=== PATIENT | male | born 1950 | race Caucasian/White ===

== ENCOUNTER 2025-02-11 11:05 | Inpatient (IN) ==
[2025-02-11] MEDS: SODIUM CHLORIDE 0.9% 1,000 ML IV ONE (11:28)
--- NOTE | 2025-02-11 11:28 | Emergency Department Note ---
Impression & Plan Acute kidney injury superimposed on CKD, Diarrhea ED Provider Note Provider: Marc Key MD CHIEF COMPLAINT: 4 days of diarrhea HISTORY OF PRESENT ILLNESS: Patient is a 74-year-old gentleman history of type 2 diabetes, CKD, hypertension presenting here today with with concerns for infectious diarrhea and possible C. difficile. Patient's had 4 days of nonbloody diarrhea. They report it was somewhat black in nature but this is chronic is on iron supplement. Has lightened up somewhat but no blood noted. Denies abdominal cramping or abdominal pain. No nausea or vomiting reported. No fevers. No recent travel or other sick contact. No suspect food intake reported. is well. Patient states he has had more than a dozen bowel manage last several days but has intermittently been using little Imodium to make it more bearable. 2 bowel movements this morning. Has been able to take his medications and monitor his blood sugar and it has been doing okay not over 200. Patient has been eating and drinking but states he feels thirsty and weak. Reported 10 pound weight loss over the last 4 days. No history of similar. PAST MEDICAL HISTORY: As noted above MEDICATIONS: Reviewed home medications and he states he has been taking them SOCIAL HISTORY: PHYSICAL EXAM: GENERAL: alert and oriented in no acute distress on stretcher Head: normocephalic and atraumatic EYES: No injection, discharge or icterus. NECK: Trachea midline. ENT: Mucous membranes pink and moist. LUNGS: Airway patent. No retractions or tachypnea HEART: Regular rate and rhythm. No chest wall tenderness ABDOMEN: Soft and non-tender, without guarding or rebound. No masses appreciable. Rectal: With nurse concrete mixer truck driver Cindi present, yellowish liquid stool Hemoccult negative obtained. SKIN: Acyanotic, warm, dry, without rashes EXTREMITIES: Without swelling, tenderness or deformity NEUROLOGICAL: No focal deficits. No aphasia. No facial droop or slurred speech. Ambulatory. EK bpm sinus rhythm first-degree AV block with left bundle branch block noted. No clear acute ST segment elevation consistent with Sgarbossa criteria. QTc 540. T wave inversion lead I and aVL. Compared to previous from May 18, 2022 appears similar. CONTINUOUS CARDIAC MONITORING: was ordered and showed a heart rate of 70s bpm in first-degree AV block Patient's laboratory studies and imaging reviewed. Differential includes Gastroenteritis, food borne illness, infections including C. difficile or norovirus, appendicitis, diverticulitis, inflammatory bowel disease, obstruction, GI bleed, biliary pathology, volvulus, as well as other pathologies. IMPRESSION/MEDICAL DECISION MAKING: Patient without abdominal pain tenderness or distention. No nausea or vomiting. Does appear somewhat fatigued reports significant weight loss. Question this is fluid weight. Is on Jardiance for his diabetes and has chronic CKD with significant amount of diarrhea may be volume down. Liter of normal saline ordered. Basic labs ordered. Hemoccult negative here doubt GI bleed. Discussed the patient providing stool sample to test for C. difficile or norovirus but does not have risk factors for C. difficile. Patient's states her prior had this so she is concerned for it. Does not appear obviously septic at this time and does not have a surgical abdomen. Blood work here today without anemia. Mild leukocytosis of 10.4 noted. Mild hyponatremia 135 with some mild hypokalemia of 2.8. Evidence of acute kidney injury creatinine of [address] Noncon of the abdomen pelvis to exclude any obstructive findings contributing to his DAVID. CT report seems reassuring at this time. No evidence acute hepatitis or pancreatitis based on labs. Chronic stable troponin compared to previous. I will hold off on aggressive potassium supplementation given his renal dysfunction at this time; discussed with the hospitalist 20 mEq ordered. Still waiting stool sample. Discussed with him and his findings and agreeable with the plan to stay for further hydration and monitoring of his renal function. Hospitalist team contacted. C. difficile and stool panel later returned negative. DIAGNOSIS: DAVID on CKD, diarrhea, weakness, hypokalemia DISPOSITION: Hospitalist will evaluate Patient was agreeable with this plan. Past Med/Surg History Problem List (Updated 02/11/25 @ 12:25 by Marc Key M.D.) Diarrhea (Acute) Acute kidney injury superimposed on CKD (Acute) Diabetes type 2, controlled CKD stage 3 due to type 2 diabetes mellitus Dyslipidemia Hypertension Diabetic nephropathy associated with type 2 diabetes mellitus Personal history of diabetic foot ulcer Diabetic peripheral neuropathy associated with type 2 diabetes mellitus Medical History Hx of iron deficiency anemia Sleep apnea CPAP Surgical History Hx of appendectomy Hx of arthroscopic knee surgery lt. Social History Smoking Status: Never smoker Second Hand Exposure: Yes (hx-parents smoked); Do You Dip or Chew Tobacco: No; Hx Alcohol Use: Yes Hx Substance Use: No Preferred Language: Swedish Communication Ability: Effective Inside Sales Account Executive Required: No Beliefs That Will Affect Care: None Current Living Situation: Spouse and Family Feels Safe at Home: Yes Assistive Devices: CPAP, Denture - Upper, Denture - Lower and Glasses Allergies Allergies Allergy/AdvReac Type Severity Reaction Status Date / Time lisinopril Allergy Severe Anaphylaxis Verified 02/11/25 13:21 metformin Allergy Severe Anaphylaxis Unverified 02/11/25 13:21 Home Meds Home Medications Medication Instructions Recorded Confirmed allopurinol 100 mg tablet 100 mg PO QAM 01/07/22 02/11/25 amlodipine 2.5 mg tablet 2.5 mg PO QAM 01/07/22 02/11/25 cholecalciferol (vitamin D3) 25 25 mcg PO HS 01/07/22 02/11/25 mcg (1,000 unit) capsule cyanocobalamin (vitamin B-12) 500 500 mcg PO QAM 01/07/22 02/11/25 mcg tablet furosemide 80 mg tablet 80 mg PO BID 01/07/22 02/11/25 hydralazine 50 mg tablet 50 mg PO BID 01/07/22 02/11/25 metoprolol succinate 50 mg 50 mg PO BID 01/07/22 02/11/25 tablet,extended release 24 hr atorvastatin 40 mg tablet 40 mg PO HS 03/20/22 02/11/25 gabapentin 300 mg capsule 300 - 600 mg PO UD 03/20/22 02/11/25 insulin NPH isoph U-100 human 100 0 - 150 unit subcut DIRECTED 11/30/24 02/11/25 unit/mL (3 mL) subcutaneous pen (Novolin N FlexPen) calcium carbonate (Calcium 600) 600 mg PO DAILY 02/11/25 02/11/25 ferrous sulfate 325 mg (65 mg 325 mg PO DAILY 02/11/25 02/11/25 iron) tablet (iron) garlic 100 mg tablet 100 mg PO DAILY 02/11/25 02/11/25 insulin lispro 100 unit/mL 26 - 30 unit subcut BID 02/11/25 02/11/25 subcutaneous pen (Humalog KwikPen (U-100) Insulin) isosorbide mononitrate 30 mg 30 mg PO QAM 02/11/25 02/11/25 tablet,extended release 24 hr Previous Rx's Medication Instructions Recorded dulaglutide 3 mg/0.5 mL 3 mg (0.5 mL) subcut Q7D #6 mL 09/05/24 subcutaneous pen injector (Trulicity) amitriptyline 10 mg tablet 10 mg PO DAILY #30 tabs 12/01/24 empagliflozin 25 mg tablet 25 mg PO QAM #30 tabs 01/16/25 Results & Data (ED) Vital Signs Vital Signs - 24 hr 02/11/25 11:08 02/11/25 11:25 02/11/25 11:45 Temperature 36.1 C L Temperature Source Temporal Artery Scan Pulse Rate 72 70 70 Pulse Rate [Left Finger] Pulse Rate from SpO2 Sensor Pulse Rhythm Regular Pulse Rhythm [Left Finger] Pulse Strength [Left Finger] Respiratory Rate 18 16 Respiratory Effort / Characteristics Non-Labored Spontaneous Respiratory Depth Normal Respiratory Pattern Regular Blood Pressure 91/52 L Blood Pressure [Left Arm] Blood Pressure Mean 65 Blood Pressure Mean [Left Arm] Blood Pressure Position [Left Arm] Pulse Oximetry 95 99 Oxygen Delivery Method Room Air Room Air Sepsis Recent Fever Within 48 Hours No Sepsis New/Unexplained Change in Mental Status N/A Sepsis Action Taken by Nursing No Action Required 02/11/25 12:24 02/11/25 12:24 02/11/25 13:06 Temperature Temperature Source Pulse Rate 69 Pulse Rate [Left Finger] 69 Pulse Rate from SpO2 Sensor 70 Pulse Rhythm Pulse Rhythm [Left Finger] Regular Pulse Strength [Left Finger] Normal Respiratory Rate 20 13 Respiratory Effort / Characteristics Non-Labored Spontaneous Respiratory Depth Normal Respiratory Pattern Regular Blood Pressure 105/60 Blood Pressure [Left Arm] 105/60 Blood Pressure Mean 65 Blood Pressure Mean [Left Arm] 75 Blood Pressure Position [Left Arm] Lying Pulse Oximetry 93 94 Oxygen Delivery Method Room Air Sepsis Recent Fever Within 48 Hours Sepsis New/Unexplained Change in Mental Status Sepsis Action Taken by Nursing Laboratory Data 02/11/25 11:25 02/11/25 17:05 Lab Results 02/11/25 Range/Units 11:25 WBC 13.41 H (4.8-10.8) K/ul RBC 5.23 (4.70-6.10) M/uL Hgb 16.2 (14.0-18.0) g/dl Hct 47.6 (42.0-52.0) % MCV 91.0 (80.0-100.0) fL MCH 31.0 (25.0-34.0) pg MCHC 34.0 (32.0-36.0) g/dL RDW Std Deviation 43.8 (36.4-46.3) fL RDW Coeff of Valerie 13.2 (11.5-14.5) % Plt Count 136 (130-400) K/uL MPV 12.7 H (9.4-12.4) fL Immature Gran % (Auto) 0.5 % Neut % (Auto) 74.4 % Lymph % (Auto) 15.4 % [place] % (Auto) 7.5 % Eos % (Auto) 1.8 % Baso % (Auto) 0.4 % Neut # (Auto) 9.97 H (1.40-6.50) K/uL Lymph # (Auto) 2.07 (1.20-3.40) K/uL [place] # (Auto) 1.00 H (0.11-0.59) K/uL Eos # (Auto) 0.24 (0.00-0.50) K/uL Baso # (Auto) 0.06 (0.00-0.20) K/uL Immature Gran # (Auto) 0.07 (0.01-0.20) K/uL Sodium 135 L (136-145) mmol/L Potassium 2.8 L (3.5-5.1) mmol/L Chloride 97 L (98-107) mmol/L Carbon Dioxide 24 (21-32) mmol/L Anion Gap 14 H (3-11) BUN 56 H (6-23) mg/dl Creatinine 4.00 H (0.6-1.4) mg/dl Est Cr Clr Drug Dosing 18.3 ml/min eGFR 14.78 BUN/Creatinine Ratio 14.0 (10-20) Glucose 173 H (70-99(Fasting)) mg/dl Calcium 9.3 (8.6-10.3) mg/dl Magnesium 2.2 (1.7-2.4) mg/dl Total Bilirubin 1.9 H (0.2-1.0) mg/dl AST 15 (13-39) U/L ALT 12 (7-52) U/L Alkaline Phosphatase 83 (34-104) U/L Troponin I High Sens 29.9 H (0-20) pg/ml Total Protein 8.1 (6.0-8.3) gm/dl Albumin 4.1 (3.4-5.0) gm/dl Globulin 4.0 (2.5-4.0) gm/dl Albumin/Globulin Ratio 1.0 (0.9-2) Lipase 49 (11-82) U/L Administered Medications Sodium Chloride (Nss) 1,000 mls @ 60 mls/hr IV .[id number] CORRIE Stop: 02/12/25 08:09 Last Admin: 02/11/25 16:06 Dose: 60 mls/hr Documented By: EDGARDO Psyllium Hydrophilic Mucilloid (Psyllium Or Guar Gum Fiber 4gm Packet) 4 gm PO QAM CORRIE Stop: 03/13/25 13:14 Last Admin: 02/11/25 16:06 Dose: 4 gm Documented By: EDGARDO Discontinued Medications Sodium Chloride (Nss) 1,000 mls @ 999 mls/hr IV .[id number] ONE Stop: 02/11/25 12:14 Last Infusion: 02/11/25 12:27 Dose: Infused Documented By: Admin: 02/11/25 11:28 Dose: 999 mls/hr Documented By: ROGE Potassium Chloride (K Homar / Wtr) 10 meq in 100 mls @ 100 mls/hr IV Q1H CORRIE Stop: 02/11/25 14:44 Last Infusion: 02/11/25 16:05 Dose: Infused Documented By: Admin: 02/11/25 13:47 Dose: 100 mls/hr Documented By: Infusion: 02/11/25 13:47 Dose: Infused Documented By: Admin: 02/11/25 12:53 Dose: 100 mls/hr Documented By: ROGE Potassium Chloride (Potassium Chloride Crtab 20 Meq Tabcr) 20 meq PO NOW STA Stop: 02/11/25 13:10 Last Admin: 02/11/25 13:45 Dose: 20 meq Documented By: ROGE Imaging Data Radiologist's Impression: Abdomen/Pelvis CT 02/11/25 12:18 Clinical History: Diarrhea. Acute renal injury Technique: Axial computed tomography images were obtained of the abdomen and pelvis without intravenous contrast. Findings: The liver is overall of normal size, attenuation, and contour with no sign of cirrhosis or significant fatty infiltration. No definite liver mass lesion is seen on this noncontrast study. There are numerous small gallstones. There is no definite sign of acute cholecystitis. No bile duct dilatation is noted. The spleen is of normal size. No focal splenic lesion is evident. The pancreas appears normal with no sign of acute or chronic pancreatitis and no mass lesion noted. The pancreatic duct is of normal caliber. The adrenal glands appear unremarkable. No renal or proximal ureteral calculi are seen. There is no hydronephrosis or perinephric stranding. No definite renal mass lesion is identified. The aorta is of normal caliber. No abdominal adenopathy is seen. There is a small umbilical hernia containing only fat The stomach appears normal. There is no sign of small bowel obstruction. The colon appears unremarkable. The appendix appears normal also. No free intraperitoneal fluid or air is identified. No distal ureteral or bladder calculi are seen. The bladder is decompressed. The iliac arteries are of normal caliber. There is a stent in the left common iliac and external iliac veins. No pelvic adenopathy is noted. The prostate is mildly enlarged measuring 4.2 cm. There are left larger than right inguinal hernias containing only fat The lungs bases appear clear. There is mild dilatation of the visualized esophagus No fracture is identified. No focal osseous lesion is seen Impression: 1. Cholelithiasis without evidence of acute cholecystitis 2. Mild esophageal dilatation, which could be due to dysmotility or reflux 3. Mildly enlarged prostate 4. Inguinal hernias containing only fat ACT 112: Positive. There are findings on this exam that require communication between the performing entity and the patient following Patient Test Result Information Act ([place] ACT 112) guidelines. Electronically signed by José Sheikh 02-11-2025 12:56 PM Discharge Plan Visit Data Chief Complaint: Diarrhea Stated Complaint: DIARRHEA 4 DAYS ED Provider: Marc Key Discharge Problem: Acute kidney injury superimposed on CKD, Diarrhea Patient Disposition: Being Evaluated by Hospitalist Discharge Instructions Interventions: ED Discharge Assessment Last Done: 02/11/25 17:01
[2025-02-11 11:49] LABS: Basophils # (auto) 0.06 K/uL (0.00-0.20); Basophils % (auto) 0.4 %; Eosinophils # (auto) 0.24 K/uL (0.00-0.50); Eosinophils % (auto) 1.8 %; Hematocrit (blood only) 47.6 % (42.0-52.0); Hemoglobin 16.2 g/dl (14.0-18.0); Immature Granulocytes # (auto) 0.07 K/uL (0.01-0.20); Immature Granulocytes % (auto) 0.5 %; Lymphocytes # (auto) 2.07 K/uL (1.20-3.40); Lymphocytes % (auto) 15.4 %; Mean Platelet Volume 12.7 fL (9.4-12.4); Monocytes % (auto) 7.5 %; Neutrophils # (auto) 9.97 K/uL (1.40-6.50); Neutrophils % (auto) 74.4 %; Platelet Count 136 K/uL (130-400); RDW Coefficient of Variation 13.2 % (11.5-14.5); RDW Standard Deviation 43.8 fL (36.4-46.3); Red Blood Count 5.23 M/uL (4.70-6.10); White Blood Count 13.41 K/ul (4.8-10.8)
[2025-02-11 12:16] LABS: Albumin Level 4.1 gm/dl (3.4-5.0); Bilirubin,Total 1.9 mg/dl (0.2-1.0); Calcium 9.3 mg/dl (8.6-10.3); Creatinine Clr Calc Pharmacy 18.3 ml/min; Potassium 2.8 mmol/L (3.5-5.1); Total Protein 8.1 gm/dl (6.0-8.3)
[2025-02-11 12:21] LABS: Troponin I High Sensitivity 29.9 pg/ml (0-20)
--- NOTE | 2025-02-11 12:44 | History & Physical Report ---
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 Patient denies abdominal pain. Admitting CTAP with no acute finding. Potassium of 2.8, given advanced CKD we will replete total of 40 mEq and repeat BMP around 5 PM. Continue with gentle IV fluid, encourage p.o. electrolyte solution. Add Metamucil and cholestyramine, will avoid Imodium until stool PCR and stool C. difficile are out. Leukocytosis: WBC of 13.4 1K at presentation, likely secondary to stress. Patient with no fever or abdominal pain or other signs of acute/active infection. Currently will monitor off antibiotic. DAVID over CKD stage IV:Outpatient chart review with baseline creatinine around 2.2-2.5, EGFR high 20s to low 30s. Admitting creatinine of 4.0. 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 Will continue received 1 L NS in the ED, will continue with gentle IV hydration, encourage p.o. fluid intake. [ echo with EF of 48%, grade 1 diastolic dysfunction.] Will continue to hold nephrotoxic's including home diuretics. Labs in a.m., if with worsening electrolyte/renal function, consider nephrology consult. Likely chronic elevation of troponin: Troponin at presentation 29, past troponin around the same level. Patient with no chest pain. Continue to monitor over telemetry. Other chronic medical conditions: Continue with/resume home meds as and when able. Cardiomyopathy: Continue with home cardiac medications as able. Hold nephrotoxics and blood pressure medication as DAVID over CKD and soft blood pressure at presentation. Hypertension: Hold BP medications today, continue to monitor blood pressure. Hyperlipidemia: Continue with home atorvastatin T2DM: Sliding scale insulin while in hospital. Anemia: Will continue with supplement. Diabetic neuropathy: Continue with gabapentin. DVT prophylaxis: Heparin subcu Full code History of Present Illness Chief Complaint: Diarrhea Primary Care Provider: Gaby Islas MD 74-year-old male with PMH of T2DM, obesity, HLD, HTN, diabetic nephropathy, CKD stage III, diabetic neuropathy, cardiomyopathy (presumed idiopathic) with improved LV function/normalization, BENY with daily CPAP use presents to the ED with complaint of diarrhea. Patient reports having diarrhea, nonbloody for 4 days, "almost throughout the day" for the first 2 days and then he took Imodium which has helped improve frequency of diarrhea since yesterday. Patient had 2 diarrheal bowel movements today, none after coming to the hospital so far. 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 Patient denies any fever/nausea/vomiting/belly pain/cramps/pain or burning while passing urine. Patient also denies sore throat/cough/chest pain/palpitation. Patient reports occasionally feeling dizzy and has been progressively feeling weak. Patient denies any sick family members, is doing well. Patient denies any travel or sick contact. Patient denies smoking/alcohol use/recreational drug use. Medications reviewed with the patient and his at bedside. Full code Plan of care discussed with them in detail, they voiced understanding. Allergies Allergy/AdvReac Type Severity Reaction Status Date / Time lisinopril Allergy Severe Anaphylaxis Verified 02/11/25 13:21 metformin Allergy Severe Anaphylaxis Unverified 02/11/25 13:21 Home Medications Medication Instructions Recorded Confirmed Type allopurinol 100 mg tablet 100 mg PO QAM 01/07/22 02/11/25 History amlodipine 2.5 mg tablet 2.5 mg PO QAM 01/07/22 02/11/25 History cholecalciferol (vitamin D3) 25 25 mcg PO HS 01/07/22 02/11/25 History mcg (1,000 unit) capsule cyanocobalamin (vitamin B-12) 500 500 mcg PO QAM 01/07/22 02/11/25 History mcg tablet furosemide 80 mg tablet 80 mg PO BID 01/07/22 02/11/25 History hydralazine 50 mg tablet 50 mg PO BID 01/07/22 02/11/25 History metoprolol succinate 50 mg 50 mg PO BID 01/07/22 02/11/25 History tablet,extended release 24 hr atorvastatin 40 mg tablet 40 mg PO HS 03/20/22 02/11/25 History gabapentin 300 mg capsule 300 - 600 mg PO UD 03/20/22 02/11/25 History dulaglutide 3 mg/0.5 mL 3 mg (0.5 mL) subcut Q7D #6 mL 09/05/24 02/11/25 Rx subcutaneous pen injector (Trulicity) insulin NPH isoph U-100 human 100 0 - 150 unit subcut DIRECTED 11/30/24 02/11/25 History unit/mL (3 mL) subcutaneous pen (Novolin N FlexPen) amitriptyline 10 mg tablet 10 mg PO DAILY #30 tabs 12/01/24 02/11/25 Rx empagliflozin 25 mg tablet 25 mg PO QAM #30 tabs 01/16/25 02/11/25 Rx calcium carbonate (Calcium 600) 600 mg PO DAILY 02/11/25 02/11/25 History ferrous sulfate 325 mg (65 mg 325 mg PO DAILY 02/11/25 02/11/25 History iron) tablet (iron) garlic 100 mg tablet 100 mg PO DAILY 02/11/25 02/11/25 History insulin lispro 100 unit/mL 26 - 30 unit subcut BID 02/11/25 02/11/25 History subcutaneous pen (Humalog KwikPen (U-100) Insulin) isosorbide mononitrate 30 mg 30 mg PO QAM 02/11/25 02/11/25 History tablet,extended release 24 hr Past Med/Surg History Problem List (Updated 02/11/25 @ 12:25 by Marc Key M.D.) Diarrhea (Acute) Acute kidney injury superimposed on CKD (Acute) Diabetes type 2, controlled CKD stage 3 due to type 2 diabetes mellitus Dyslipidemia Hypertension Diabetic nephropathy associated with type 2 diabetes mellitus Personal history of diabetic foot ulcer Diabetic peripheral neuropathy associated with type 2 diabetes mellitus Medical History Hx of iron deficiency anemia Sleep apnea CPAP Surgical History Hx of appendectomy Hx of arthroscopic knee surgery lt. 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 Physical Exam Physical Exam: GENERAL: Alert and oriented x3. NAD, on RA. Appears tired/fatigued/weak/frail/ill. HEENT: No pallor, no icterus. Pupils equal, round and reactive to light. Oral mucosa moist. NECK: No JVD, no neck masses. HEART: S1 and S2 heard. Regular rate and rhythm. No murmur, no gallop. RESPIRATORY SYSTEM: Normal AP diameter. No accessory muscle use. No wheezing, no crackles. ABDOMEN: Soft, bowel sounds present, nontender, no distention. CENTRAL NERVOUS SYSTEM: No facial droop. Speech is clear. Obeys simple commands. Moves extremities. EXTREMITIES: No edema, no erythema seen. Results & Data Results & Data Vital Signs (Past 12 Hours) Vital Signs Temp Pulse Pulse Resp BP BP Pulse Ox 02/11/25 12:24 69 20 105/60 93 02/11/25 11:45 70 02/11/25 11:25 70 16 99 02/11/25 11:08 36.1 C L 72 18 91/52 L 95 O2 Del Method 02/11/25 12:24 Room Air 02/11/25 11:45 02/11/25 11:25 Room Air 02/11/25 11:08 Room Air
[2025-02-11] MEDS: POTASSIUM CHLORIDE / WTR 10 MEQ/100 ML PLCT IV SCH (12:53)
--- NOTE | 2025-02-11 12:57 | CT Scan Report ---
Clinical History: Diarrhea. Acute renal injury Technique: Axial computed tomography images were obtained of the abdomen and pelvis without intravenous contrast. Findings: The liver is overall of normal size, attenuation, and contour with no sign of cirrhosis or significant fatty infiltration. No definite liver mass lesion is seen on this noncontrast study. There are numerous small gallstones. There is no definite sign of acute cholecystitis. No bile duct dilatation is noted. The spleen is of normal size. No focal splenic lesion is evident. The pancreas appears normal with no sign of acute or chronic pancreatitis and no mass lesion noted. The pancreatic duct is of normal caliber. The adrenal glands appear unremarkable. No renal or proximal ureteral calculi are seen. There is no hydronephrosis or perinephric stranding. No definite renal mass lesion is identified. The aorta is of normal caliber. No abdominal adenopathy is seen. There is a small umbilical hernia containing only fat The stomach appears normal. There is no sign of small bowel obstruction. The colon appears unremarkable. The appendix appears normal also. No free intraperitoneal fluid or air is identified. No distal ureteral or bladder calculi are seen. The bladder is decompressed. The iliac arteries are of normal caliber. There is a stent in the left common iliac and external iliac veins. No pelvic adenopathy is noted. The prostate is mildly enlarged measuring 4.2 cm. There are left larger than right inguinal hernias containing only fat The lungs bases appear clear. There is mild dilatation of the visualized esophagus No fracture is identified. No focal osseous lesion is seen Impression: 1. Cholelithiasis without evidence of acute cholecystitis 2. Mild esophageal dilatation, which could be due to dysmotility or reflux 3. Mildly enlarged prostate 4. Inguinal hernias containing only fat ACT 112: Positive. There are findings on this exam that require communication between the performing entity and the patient following Patient Test Result Information Act ([place] ACT 112) guidelines. Electronically signed by José Sheikh 02-11-2025 12:56 PM
[2025-02-11] MEDS ORDERED: DEXTROSE 50% 50 ML SYRINGE IV PRN (13:11)
[2025-02-11] MEDS ORDERED: GLUCOSE 10 TAB/TUBE PO PRN (13:11)
[2025-02-11] MEDS ORDERED: GLUCOSE 40% GEL 15 GM TUBE PO PRN (13:11)
[2025-02-11] MEDS ORDERED: CARBOHYDRATES FOR HYPOGLYCEMIA PO PRN (13:11)
[2025-02-11] MEDS ORDERED: ALUMINUM/MAGNESIUM SUSP 30 ML UDC PO PRN (13:11)
[2025-02-11] MEDS ORDERED: GLUCAGON FOR INJ 1 MG VIAL SQ PRN (13:11)
[2025-02-11] MEDS ORDERED: ACETAMINOPHEN 325 MG TAB PO PRN (13:11)
[2025-02-11 13:13] LABS: Magnesium 2.2 mg/dl (1.7-2.4)
[2025-02-11] MEDS: POTASSIUM CHLORIDE CRTAB 20 MEQ TABCR PO STA ×2 (13:45→19:57)
[2025-02-11 15:51] LABS: Adenovirus F 40/41 PCR Not Detected (NotDetected); Astrovirus PCR Not Detected (NotDetected); Campylobacter PCR Not Detected (NotDetected); Cryptosporidium PCR Not Detected (NotDetected); Cyclospora cayetanensis PCR Not Detected (NotDetected); Entamoeba histolytica PCR Not Detected (NotDetected); Enteroaggregative E.coli(EAEC) Not Detected (NotDetected); Enteropathogenic E.coli (EPEC) Not Detected (NotDetected); Enterotoxigenic E.coli (ETEC) Not Detected (NotDetected); Giardia lamblia PCR Not Detected (NotDetected); Norovirus GI/GII PCR Not Detected (NotDetected); Plesiomonas shigelloides PCR Not Detected (NotDetected); Rotavirus A PCR Not Detected (NotDetected); Salmonella PCR Not Detected (NotDetected); Sapovirus PCR Not Detected (NotDetected); Shiga-like Toxin E.coli (STEC) Not Detected (NotDetected); Shigella/Enteroinvasive E.coli Not Detected (NotDetected); Vibrio cholerae PCR Not Detected (NotDetected); Vibrio species PCR Not Detected (NotDetected); Yersinia enterocolitica PCR Not Detected (NotDetected)
[2025-02-11] MEDS: SODIUM CHLORIDE 0.9% 1,000 ML IV SCH (16:06)
[2025-02-11] MEDS: PSYLLIUM or GUAR GUM FIBER 4GM PACKET PO SCH (16:06)
[2025-02-11 17:41] LABS: BUN Creatinine Ratio 16.2 (10-20); Calcium 9.1 mg/dl (8.6-10.3); Creatinine Clr Calc Pharmacy 19.7 ml/min
[2025-02-11] MEDS: INSULIN ASPART PER UNIT CHARGE SC SCH (18:19)
--- OUTSIDE RECORDS SUMMARY | 2025-02-11 18:25 | External Medical Summary | Summary of Care ---
Author Name Unknown Organization [facility] Address [address] [place] [address] Phone [phone] Care Team Providers Care Operator And Truck Driver Name Role Phone Gaby Islas MD Primary Care Provider [phone] Reason for Visit * Reason Comments eRx-Medication Refill Encounter Details Date Type Department Care Team (Late st Contact Info) Description 02/09/2025 Refill Cardiology, [facility] [address] [place] [phone] Luis Llamas PA-C [address] [place] [address] Allergies Active Allergy Reactions Criticality Noted Date Comments Lisinopril Anaphylaxis High 03/17/2017 when taken in conjunction w/ Metformin documented as of this encounter (statuses as of 02/10/2025) Medications Cholecalciferol 25 MCG (1000 UT) Oral Capsule Take by mouth daily. Active Cyanocobalamin 500 MCG Oral Tablet Take 1 Tablet by mouth in the morning. Active Polysaccharide Iron Complex 150 MG Oral Capsule 2 times a day. Active Pen Lyndon 32G X 5 MMIndications:Typ e 2 diabetes mellitus with hemoglobin A1c goal of less than 7.0% ([facility]) Use as directed. To use with Lantus solostar 35 Each 5 01/01/20 21 Active BD Eclipse Needle 25G X 5/8" (Needle (Disp))Indication s:Type 2 diabetes mellitus with hemoglobin A1c goal of less than 7.0% (HCC) As directed to use with lispro 100 Each 5 01/26/20 21 Active FreeStyle Test In Vitro Strip (Glucose Blood) Use Test Strips 4-times a day as directed. Hba1c 05/14/21 -8.6 400 Strip 3 05/28/20 21 Active FreeStyle LancetsIndication s:Type 2 diabetes mellitus with hemoglobin A1c goal of less than 7.0% ([facility]) Check blood sugar 4 times daily. Hba1c 05/14/21 -8.6 IDDM 400 Each 3 05/28/20 21 Active Insulin Syringe-Needle U-100 30G X 1/2" 0.5 MLIndications:Typ e 2 diabetes mellitus with hemoglobin A1c goal of less than 7.0% (HCC) Use as directed to use with lispro 100 Each 5 05/28/20 21 Active One-A-Day Mens 50+ Oral Tablet Take 1 Tab by mouth daily. Active Garlic 10 MG Oral Capsule Take by mouth daily. Active Jardiance 25 MG Oral Tablet Take 1 Tablet by mouth in the morning. 06/20/20 22 Active Zoster Vac Recomb Adjuvanted 50 MCG/0.5ML Intramuscular Suspension Reconstituted (Shingrix)Indicat ions:Need for vaccination for zoster Inject 0.5 mL into a large muscle now and repeat dose in 60 to 180 days 1 Each 1 07/17/20 22 Active NovoLIN N FlexPen 100 UNIT/ML Subcutaneous Suspension Pen-injector (Insulin NPH (Human) (Isophane))Indica tions:Type 2 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 disease, with long-term current use of insulin ([facility]),Type 2 diabetes mellitus with hemoglobin A1c goal of less than 7.0% ([facility]) Inject under the skin 15 Units daily with breakfast 60 mL 3 02/08/20 23 Active Trulicity 3 MG/0.5ML Subcutaneous Solution Pen-injector (Dulaglutide)Svetlana cations:Type 2 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 disease, with long-term current use of insulin ([facility]) INJECT 3 MG (0.5 ML) UNDER THE SKIN ONCE A WEEK 6 mL 3 10/07/20 23 Active Magnesium 400 MG Oral Tablet Take 1 Tablet by mouth in the morning. Active Metoprolol Succinate ER 50 MG Oral Tablet Extended Release 24 Hour (toPROL XL)Indications:Ca rdiomyopathy, unspecified type (HCC),HTN, goal below 140/90 Take 1 tablet by mouth twice daily 180 Tablet 3 05/23/20 24 Active Furosemide 80 MG Oral Tablet (Lasix)Indication s:Type 2 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 disease, with long-term current use of insulin (HCC),HTN, goal below 140/90 Take 1 tablet by mouth twice daily 180 Tablet 3 08/05/20 24 Active Amitriptyline HCl 10 MG Oral Tablet (Elavil) Take 1 Tablet by mouth in the morning. 07/22/20 24 Active Atorvastatin Calcium 40 MG Oral Tablet (Lipitor)Indicati ons:Hyperlipidemi a with target LDL less than 100 Take 1 tablet by mouth once daily 90 Tablet 1 11/04/19 25 Active amLODIPine Besylate 2.5 MG Oral Tablet (Norvasc)Indicati ons:HTN, goal below 140/90 TAKE 1 TABLET BY MOUTH IN THE MORNING 90 Tablet 1 11/04/19 25 Active Allopurinol 100 MG Oral Tablet (Zyloprim) TAKE 1 TABLET BY MOUTH IN THE MORNING 90 Tablet 1 11/14/19 25 Active Insulin Lispro (1 Unit Dial) 100 UNIT/ML Subcutaneous Solution Pen-injector (Admelog) Inject 20 Units under the skin daily before breakfast. 12/11/19 25 Active hydrALAZINE HCl 50 MG Oral Tablet (Apresoline)Indic ations:HTN, goal below 140/90 Take 1 tablet by mouth twice daily 180 Tablet 3 01/31/20 25 Active Isosorbide Mononitrate ER 30 MG Oral Tablet Extended Release 24 Hour (Imdur) TAKE 1 TABLET BY MOUTH IN THE MORNING 90 Tablet 3 02/11/20 25 Active Isosorbide Mononitrate ER 30 MG Oral Tablet Extended Release 24 Hour (Imdur) Take 1 Tablet by mouth in the morning. 31 Tablet 5 10/14/20 23 025 Discontinued documented as of this encounter (statuses as of 02/10/2025) Active Problems Problem Noted Date Diagnosed Date Type 2 diabetes mellitus wit h hemoglobin A1c goal of less than 8.0% 01/25/2021 Type 2 diabetes mellitus wit h stage 4 chronic kidney disease, with long-term current use of insulin 12/27/2020 Cardiomyopathy 12/27/2020 Hyperlipidemia with target LDL less than 100 01/2021 HTN, goal below 140/90 12/27/2020 documented as of this encounter (statuses as of 02/10/2025) Resolved Problems Problem Noted Date Diagnosed Date Resolved Date Cortical senile cataract 02/14/2012 documented as of this encounter (statuses as of 02/10/2025) Immunizations Name Administration Dates Next Due COVID-19 mRNA, LNP-s, No Pre serve, 2-Dose Series (Moderna) 10/21/2021,12/29/2020,12/01/2020 HEP A - Hepatitis A (Adult > 18 yrs) 08/17/2015, 02/15/2015 Hepatitis B, 20+ yrs 08/13/2021,03/11/2021,02/01 PPD 06/25/2022,05/21/2022 Pneumococcal Conjugate Vacc, 13 Valent (Prevnar) 02/15/2015 Pneumococcal Polysaccharide PPV23 (Pneumovax) 02/27/2014,10/26/2007 TDAP (age 10 and older)(Boostrix) 02/15/2015 TDAP, Age 7 and older, IM (Adacel) 03/10/2015 Typhoid Vaccine Parenteral 02/12/2015 documented as of this encounter Social History Tobacco Use Types Packs/Day Years Used Date Smoking Tobacco: Never Smokeless Tobacco: Never Alcohol Use Standard Drinks/Week Comments Yes 2 (1 standard drink = 0.6 oz pur e alcohol) occ PHQ-2 Answer Date Recorded PHQ Adult Total Score 0 02/09/2024 Hunger Vital Sign Answer Date Recorded Within the past 12 months, y ou worried that your food would run out before you got the money to buy more. Never true 01/26/20 21 Within the past 12 months, t he food you bought just didn't last and you didn't have money to get more. Never true 01/25/2021 Sex and Gender Information Value Date Recorded Sex Assigned at Male 01/27/2024 5:44 PM EDT Legal Sex Male 6:56 AM EST Gender Identity Male 01/27/2024 5:44 PM EDT Sexual Orientation Straight 01/27/2024 5: 44 PM EDT documented as of this encounter Miscellaneous Notes * Telephone Encounter - Zully Payne RP - 02/10/2025 3:58 PM EDTSigned Prescriptions: Disp Refills Isosorbide Mononitrate ER 30 MG Oral Table*90 Tab*3 Sig: TAKE 1 TABLET BY MOUTH IN THE MORNINGAuthorizing Provider: LUIS LLAMAS User: ZULLY PAYNE--- * Telephone Encounter - Michele Hanley - 02/09/2025 7:53 PM EDTPending Prescriptions: Disp Refills Isosorbide Mononitrate ER 30 MG Oral Table*31 Tab*0 Sig: Take 1 Tablet by mouth in the morning. * Telephone Encounter - Michele Hanley - 02/09/2025 7:51 PM EDT Did you pend patient's preferred pharmacy and medication before forwarding?yes Pharmacy: [facility] [address] [place] [address] [address] [facility] Pending Prescriptions: Disp Refills Isosorbide Mononitrate ER 30 MG Oral Tabl*31 Tab*0 Sig: TAKE 1 TABLET BY MOUTH IN THE MORNING Last Visit: 09/19/2024 (in office), Visit date not found (telemedicine) Next Visit: Visit date not found If no future appointments scheduled, and last appointment is greater than a year ago, please schedule patient for a follow-up appointment Last date the medication was ordered: 10/14/2023 Is this request for a controlled substance?No Urine Drug Screen:No results found for this or any previous visit. Patient Phone Numbers Labs: Lab Results Component Value Date/Time CREAT 2.1 (H) 02/01/2025 07:22 AM CREAT 3.81 (A) 11/21/2020 12:00 AM CREAT 2.04 (H) 09/07/2019 07:51 AM POTASSIUM 3.4 (L) 02/01/2025 07:22 AM POTASSIUM 4.0 11/21/2020 12:00 AM POTASSIUM 3.6 09/07/2019 07:51 AM TSH 1.22 02/25/2023 08:31 AM LDL 42 02/01/2025 07:22 AM LDL 18 02/25/2023 08:31 AM LDL 42 12/13/2016 04:17 AM LDLCALC 20 07/13/2023 12:00 AM LDLCALC 21.4 09/07/2019 07:51 AM ALT 16 02/01/2025 07:22 AM HGBA1C 8.0 (H) 02/01/2025 07:22 AM HGBA1C 7.5 (A) 12/23/2023 12:00 AM HGBA1C 8.4 (H) 09/07/2019 07:51 AM documented in this encounter Plan of Treatment Upcoming Encounters Date Type Department Care Team (Late st Contact Info) Description 02/23/2025 5:00 PM EDT Office Visit General Internal Medicine [facility] [address] [place] [address] Gaby Islas MD [address] [place] [address] 03/22/2025 9:30 AM EDT Office Visit Cardiology, [facility] [address] [place] [phone] Luis Llamas PA-C [address] [place] [phone] 09/06/2025 5:00 PM EST Office Visit Nephrology, [facility] [address] [place] [address] Uziel Islas MD [address] [place] [address] 09/19/2025 4:00 PM EST Cardiac Studies Cardiac Studies, [facility] [address] [place] [phone] Scheduled Procedures Name Priority Associated Diagnoses Date/Ti me COLONOSCOPY FLEXIBLE PROXIMAL DIAGNOSTIC Recall History of colon polyps Health Maintenance Due Date Last Done Comments Zoster Vaccines (1 of 2) 1998 Adult Wellness Visit 2014 Diabetic Eye Exam 05/12/2023 05/12/2022, , 03/05/2012, Additional history exists COVID-19 Vaccine ( season) 2024 10/21/2021, 12/29/2020, 12/01/2020 Diabetic Foot Exam 08/10/2024 08/10/2023, 0 12/27/2021, 01/11/2021 Depression Screening 02/08/2025 02/09/2024 DTap/Tdap Vaccines (3 - Td or Tdap) 03/10/2025 03/10/2015, 02/15/2015 Influenza Vaccine (FLU shot) (Season Ended) 2025 GFR 08/03/2025 02/01/2025, 08/26, 05/24/2024, Additional history exists HbA1c 08/03/2025 02/01/2025, 08/26, 05/24/2024, Additional history exists Colonoscopy 01/08/2026 01/08/2023 Nephrology Referral 01/25/2026 01/25/2025 Hgb 02/01/2026 02/01/2025, 04/27, 12/17/2022, Additional history exists PTH 02/01/2026 02/01/2025, 04/27, 12/17/2022, Additional history exists Phosphate 02/01/2026 02/01/2025, 04/27, 06/03/2023, Additional history exists Albumin/Creatinine Ratio 02/02/2026 025, 09/07/2024, 08/23/2024, Additional history exists Pneumococcal Vaccine: 50+ Years Completed 02/15/2015, 02/27/2014, 10/26/2007 Cologuard Discontinued 02/03/2021 Hepatitis B Vaccine Completed 08/13/2021, 03/11/2021, 02/01/2021 HPV (Gardasil) Vaccine Aged Out No lo nger eligible based on patient's age to complete this topic MENINGOCOCCAL (MENACTRA/MENVEO) Aged Out No longer eligible based on patient's age to complete this topic Meningitis B Vaccine (Bexsero/Trumemba) Aged Out No longer eligible based on patient's age to complete this topic documented as of this encounter Medical Devices Implanted Type Area Medical Librarian Device Identifier Shelf Expiration Date Model / Serial / Lot Lens 15.0 Sa60at - [id number] Implanted:Qty: 1 on 02/28/2012 at OR [facility] Right: Eye [employer] 06/26/2016 SA60AT / [id number] / documented as of this encounter Care Teams Operator And Truck Driver Relationship Specialty Start Date End Date Gaby Islas MD [address] [facility] [place] [address] PCP - General Internal Medicine 12/27/20 documented as of this encounter
--- OUTSIDE RECORDS SUMMARY | 2025-02-11 18:26 | External Medical Summary ---
Author Name Unknown Address Unknown Organization [id number]:[facility] [place] - [address] [place] [address] Laboratory Report Ordering Provider Test Date Status VIJI RIVERS 02/02/2025 14:08:03 Final Normal: <30 mg/g creatinine< br/>High: 30-300 mg/g creatinine
Very High: >300 mg/g creatinine
Nephrotic: >2200 mg/g creatinine Observation Date Value Abnormality Reference (Units ) Status Albumin, Urine 02/02/2025 14:08:03 14.00 (mg/dL) Final Creatinine, Urine 02/02/2025 14:08:03 31 (mg/dL) Final Albumin/Creatinine [Mass Ratio] in Urine 02/02/2025 14:08:03 452 Above high normal <30 (mg/g Creat) Final Performing Location [facility] [place] - [address] [place] [address]
--- OUTSIDE RECORDS SUMMARY | 2025-02-11 18:26 | External Medical Summary | Summary of Care ---
Author Name Unknown Organization [facility] Address [address] [place] [address] Phone [phone] Care Team Providers Care Secondary School Teacher Librarian Name Role Phone Gaby Islas MD Primary Care Provider [phone] Reason for Visit * Reason Comments Chronic Kidney Disease (CKD) Encounter Details Date Type Department Care Team (Late st Contact Info) Description 01/25/2025 5:00 PM EDT Office Visit Nephrology, [facility] [address] [facility] [place] [address] Uziel Islas MD [address] [place] [address] Kidney disease, chronic, stage IV (GFR 15-29 ml/min) ([facility])*; HTN, goal below 140/90 Allergies Active Allergy Reactions Criticality Noted Date Comments Lisinopril Anaphylaxis High 03/17/2017 when taken in conjunction w/ Metformin documented as of this encounter (statuses as of 01/26/2025) Medications Cholecalciferol 25 MCG (1000 UT) Oral Capsule Take by mouth daily. Active Cyanocobalamin 500 MCG Oral Tablet Take 1 Tablet by mouth in the morning. Active Polysaccharide Iron Complex 150 MG Oral Capsule 2 times a day. Active Pen Gary 32G X 5 MMIndications:Type 2 diabetes mellitus with hemoglobin A1c goal of less than 7.0% ([facility]) Use as directed. To use with Lantus solostar 35 Each 5 1 Active BD Eclipse Needle 25G X 5/8" (Needle (Disp))Indications :Type 2 diabetes mellitus with hemoglobin A1c goal of less than 7.0% (HCC) As directed to use with lispro 100 Each 5 1 Active FreeStyle Test In Vitro Strip (Glucose Blood) Use Test Strips 4-times a day as directed. Hba1c 7/ -8.6 400 Strip 3 1 Active FreeStyle LancetsIndications :Type 2 diabetes mellitus with hemoglobin A1c goal of less than 7.0% (HCC) Check blood sugar 4 times daily. Hba1c 7// -8.6 IDDM 400 Each 3 1 Active Insulin Syringe-Needle U-100 30G X 1/2" 0.5 MLIndications:Type 2 diabetes mellitus with hemoglobin A1c goal of less than 7.0% (HCC) Use as directed to use with lispro 100 Each 5 1 Active One-A-Day Mens 50+ Oral Tablet Take 1 Tab by mouth daily. Active Garlic 10 MG Oral Capsule Take by mouth daily. Active Jardiance 25 MG Oral Tablet Take 1 Tablet by mouth in the morning. 2 Active Zoster Vac Recomb Adjuvanted 50 MCG/0.5ML Intramuscular Suspension Reconstituted (Shingrix)Indicati ons:Need for vaccination for zoster Inject 0.5 mL into a large muscle now and repeat dose in 60 to 180 days 1 Each 1 2 Active NovoLIN N FlexPen 100 UNIT/ML Subcutaneous Suspension Pen-injector (Insulin NPH (Human) (Isophane))Indicat ions:Type 2 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 disease, with long-term current use of insulin (HCC),Type 2 diabetes mellitus with hemoglobin A1c goal of less than 7.0% (HCC) Inject under the skin 15 Units daily with breakfast 60 mL 3 3 Active Trulicity 3 MG/0.5ML Subcutaneous Solution Pen-injector (Dulaglutide)Indic ations:Type 2 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 disease, with long-term current use of insulin (HCC) INJECT 3 MG (0.5 ML) UNDER THE SKIN ONCE A WEEK 6 mL 3 3 Active Magnesium 400 MG Oral Tablet Take 1 Tablet by mouth in the morning. Active Isosorbide Mononitrate ER 30 MG Oral Tablet Extended Release 24 Hour (Imdur) Take 1 Tablet by mouth in the morning. 31 Tablet 5 3 Active hydrALAZINE HCl 50 MG Oral Tablet (Apresoline)Indica tions:HTN, goal below 140/90 Take 1 tablet by mouth twice daily 180 Tablet 3 4 Active Metoprolol Succinate ER 50 MG Oral Tablet Extended Release 24 Hour (toPROL XL)Indications:Car diomyopathy, unspecified type (HCC),HTN, goal below 140/90 Take 1 tablet by mouth twice daily 180 Tablet 3 4 Active Furosemide 80 MG Oral Tablet (Lasix)Indications :Type 2 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 disease, with long-term current use of insulin ([facility]),HTN, goal below 140/90 Take 1 tablet by mouth twice daily 180 Tablet 3 4 Active Amitriptyline HCl 10 MG Oral Tablet (Elavil) Take 1 Tablet by mouth in the morning. 4 Active Atorvastatin Calcium 40 MG Oral Tablet (Lipitor)Indicatio ns:Hyperlipidemia with target LDL less than 100 Take 1 tablet by mouth once daily 90 Tablet 1 5 Active amLODIPine Besylate 2.5 MG Oral Tablet (Norvasc)Indicatio ns:HTN, goal below 140/90 TAKE 1 TABLET BY MOUTH IN THE MORNING 90 Tablet 1 5 Active Allopurinol 100 MG Oral Tablet (Zyloprim) TAKE 1 TABLET BY MOUTH IN THE MORNING 90 Tablet 1 5 Active Gabapentin 300 MG Oral Capsule (Neurontin)Indicat ions:Type 2 DM with CKD stage 4 and hypertension (HCC),Type 2 diabetes mellitus with diabetic nephropathy, without long-term current use of insulin ([facility]),Lumbar radiculopathy TAKE 1 CAPSULE BY MOUTH IN THE MORNING AND 2 AT NIGHT 180 Capsule 5 Active Insulin Lispro (1 Unit Dial) 100 UNIT/ML Subcutaneous Solution Pen-injector (Admelog) Inject 20 Units under the skin daily before breakfast. 5 Active documented as of this encounter (statuses as of 01/26/2025) Active Problems Problem Noted Date Diagnosed Date Type 2 diabetes mellitus wit h hemoglobin A1c goal of less than 8.0% 01/25/2021 Type 2 diabetes mellitus wit h stage 4 chronic kidney disease, with long-term current use of insulin 12/27/2020 Cardiomyopathy 12/27/2020 Hyperlipidemia with target LDL less than 100 01/2021 HTN, goal below 140/90 12/27/2020 documented as of this encounter (statuses as of 01/26/2025) Resolved Problems Problem Noted Date Diagnosed Date Resolved Date Cortical senile cataract 02/14/2012 documented as of this encounter (statuses as of 01/26/2025) Immunizations Name Administration Dates Next Due COVID-19 [...] PM EDT documented as of this encounter Last Filed Vital Signs Vital Sign Reading Time Taken Comments Blood Pressure 135/66 01/25/2025 4:37 PM EDT Pulse 74 01/25/2025 4:37 PM EDT Temperature 37.4 °C (99.4 °F) 01/25/2025 4:37 PM ED T Respiratory Rate 18 01/25/2025 4:37 PM EDT Oxygen Saturation 94% 01/25/2025 4:37 PM EDT Inhaled Oxygen Concentration - - Weight 110.2 kg (243 lb) 01/25/2025 4:37 PM EDT Height - - Body Mass Index 36.95 02/09/2024 2:27 PM EDT documented in this encounter Progress Notes * Uziel Islas MD - 01/25/2025 4:52 PM EDT Chief Complaint Patient presents with Chronic Kidney Disease (CKD) HPI: 74-year-old male with history of diabetes for 40+ years with CKD 4 , proteinuria neuropathy. Also has history of hypertension. Peripheral vascular disease status post stent left leg. He did see Cardiology recently. Patient has cardiomyopathy in the past but with negative ischemia workup by stress testing and normal LV function left bundle-branch block. Also has obstructive sleep apnea with daily CPAP. However he has not had any known stroke or cancer or childhood kidney disease. He moved to [place] from [facility]. He was seeing a bargain table clerk there. Since last visit 04/2024 --- No hospital admission or major illness. On Lasix 80 bid and stable mildedema but no SOB. Kidney function continues to get better. 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 Seen by PCP in in Cardiology in August 2024---no major changes done. No acute complaints at this time NSAID No Renal Stone No Herbal Medication No Urinary Complaints No Current Outpatient Medications Medication Sig Dispense Refill Cholecalciferol 25 MCG (1000 UT) Oral Capsule Take by mouth daily. Cyanocobalamin 500 MCG Oral Tablet Take 1 Tablet by mouth in the morning. Polysaccharide Iron Complex 150 MG Oral Capsule 2 times a day. One-A-Day Mens 50+ Oral Tablet Take 1 Tab by mouth daily. Garlic 10 MG Oral Capsule Take by mouth daily. Jardiance 25 MG Oral Tablet Take 1 Tablet by mouth in the morning. NovoLIN N FlexPen 100 UNIT/ML Subcutaneous Suspension Pen-injector (Insulin NPH (Human) (Isophane))Inject under the skin 15 Units daily with breakfast 60 mL 3 Trulicity 3 MG/0.5ML Subcutaneous Solution Pen-injector (Dulaglutide) INJECT 3 MG (0.5 ML) UNDER THE SKIN ONCE A WEEK 6 mL 3 Magnesium 400 MG Oral Tablet Take 1 Tablet by mouth in the morning. Isosorbide Mononitrate ER 30 MG Oral Tablet Extended Release 24 Hour (Imdur) Take 1 Tablet by mouthin the morning. 31 Tablet 5 hydrALAZINE HCl 50 MG Oral Tablet (Apresoline) Take 1 tablet by mouth twice daily 180 Tablet 3 Metoprolol Succinate ER 50 MG Oral Tablet Extended Release 24 Hour (toPROL XL) Take 1 tablet by mouth twice daily 180 Tablet 3 Furosemide 80 MG Oral Tablet (Lasix) Take 1 tablet by mouth twice daily 180 Tablet 3 Amitriptyline HCl 10 MG Oral Tablet (Elavil) Take 1 Tablet by mouth in the morning. Atorvastatin Calcium 40 MG Oral Tablet (Lipitor) Take 1 tablet by mouth once daily 90 Tablet 1 amLODIPine Besylate 2.5 MG Oral Tablet (Norvasc) TAKE 1 TABLET BY MOUTH IN THE MORNING 90 Tablet 1 Allopurinol 100 MG Oral Tablet (Zyloprim) TAKE 1 TABLET BY MOUTH IN THE MORNING 90 Tablet 1 Gabapentin 300 MG Oral Capsule (Neurontin) TAKE 1 CAPSULE BY MOUTH IN THE MORNING AND 2 AT NIGHT 180 Capsule 0 Insulin Lispro (1 Unit Dial) 100 UNIT/ML Subcutaneous Solution Pen-injector (Admelog) Inject 20 Units under the skin daily before breakfast. Pen Gary 32G X 5 MM Use as directed. To use with Lantus solostar 35 Each 5 BD Eclipse Needle 25G X 5/8" (Needle (Disp)) As directed to use with lispro 100 Each 5 FreeStyle Test In Vitro Strip (Glucose Blood) Use Test Strips 4-times a day as directed. Hba1c 7/ -8.6 400 Strip 3 FreeStyle Lancets Check blood sugar 4 times daily. Hba1c 7 -8.6 IDDM 400 Each 3 Insulin Syringe-Needle U-100 30G X 1/2" 0.5 ML Use as directed to use with lispro 100 Each 5 Zoster Vac Recomb Adjuvanted 50 MCG/0.5ML Intramuscular Suspension Reconstituted (Shingrix) Inject 0.5 mL into a large muscle now and repeat dose in 60 to 180 days 1 Each 1 No current facility-administered medications for this visit. Past Medical History: Diagnosis Date Anemia Cardiopathy Chronic kidney disease, stage V (HCC) Colon polyps 2021 Diabetes (HCC) 1984 Diabetes mellitus (HCC) 1984 Edema of lower extremity Hypercholesterolemia Hypertension Kidney disease 1989 Neuropathy Peripheral vascular disease (HCC) Pneumonia Sleep apnea Past Surgical History: Procedure Laterality Date CATARACT SURGERY,COMPLEX Left 2019 COLONOSCOPY 2021 COLONOSCOPY, DIAGNOSTIC (RECTUM) 01/08/2023 benign adenomatous polyps, fair prep, repeat 3 yrs / [facility] ARTHROSCOPY/SURGERY MISCELLANEOUS ORDER ([facility] ONLY) 2019 stent left leg REMOVAL OF APPENDIX REMOVE CATARACT, INSERT LENS PROSTH 02/28/2012 EXTRACAPSULAR CATARACT REMOVAL WITH INTRAOCULAR LENS performed by KEELY ABREU at [facility] Review of patient's allergies indicates: Allergen Reactions Lisinopril Anaphylaxis when taken in conjunction w/ Metformin Family History Problem Relation Name Age of Onset Dementia Sister Dementia Father Heart Disorder Mother valve replacement Diabetes Sister Family History of Renal Disease No Social History Socioeconomic History Marital status: Spouse name: Not on file Number of children: Not on file Years of education: Not on file Highest education level: Not on file Occupational History Not on file Social Needs Financial resource strain: Not on file Food insecurity Worry: Never true Inability: Never true Transportation needs Medical: Not on file Non-medical: Not on file Tobacco Use Smoking status: Never Smoker Smokeless tobacco: Never Used Substance and Sexual Activity Alcohol use: Yes Comment: occ Drug use: No Sexual activity: Not on file Lifestyle Physical activity Days per week: Not on file Minutes per session: Not on file Stress: Not on file Relationships Social connections Talks on phone: Not on file Gets together: Not on file Attends jew service: Not on file Active member of club or organization: Not on file Attends meetings of clubs or organizations: Not on file Relationship status: Not on file Intimate partner violence Fear of current or ex partner: Not on file Emotionally abused: Not on file Physically abused: Not on file Forced sexual activity: Not on file Other Topics Concern Not on file Social History Narrative Not on file Vaping/E-Cigarette Use Vaping/E-Cigarette Use Never User Passive Exposure No Counseling Given? No Vaping/E-Cigarette Substances Nicotine No Other No Flavoring No THC No Cannabidiol (CBD) No Vaping/E-Cigarette Devices Disposable No Pre-filled or Refillable Cartridge No Refillable Tank No Pre-filled Pod No Ambulation: No assisted device Review of Systems: Twelve systems reviewed and negative OBJECTIVE: PHYSICAL EXAM: BP 135/66 (BP Site: Left Arm, BP Position: Sitting, BP Cuff Size: Large) | Pulse 74 | Temp 37.4 °C(99.4 °F) | Resp 18 | Wt 110.2 kg (243 lb) | SpO2 94% | BMI 36.95 kg/m² | BSA 2.3 m² General: alert, healthy and no distress Head: No masses, lesions, tenderness or abnormalities Neck: supple, no JVD Heart: regular rate & rhythm, no murmurs and no gallops Lungs: normal respiratory rate and rhythm, lungs clear to auscultation Abdomen: abdomen soft and non-tender Back: no costovertebral angle tenderness Extremities: Trace edema Neuro Exam: alert & oriented x 3 with fluent speech, no focal motor/sensory deficits Skin: skin color, texture, turgor are normal, no rashes or significant lesions BP Readings from Last 4 Encounters: 01/25/25 135/66 09/19/24 138/72 09/16/24 124/62 09/08/24 130/80 Wt Readings from Last 4 Encounters: 01/25/25 110.2 kg (243 lb) 09/19/24 108.8 kg (239 lb 12.8 oz) 09/08/24 110.4 kg (243 lb 6.4 oz) 05/23/24 107.1 kg (236 lb 3.2 oz) Estimated body mass index is 36.95 kg/m² as calculated from the following: Height as of 02/09/24: 1.727 m (5' 8"). Weight as of this encounter: 110.2 kg (243 lb). NEPH-FLOW Latest Ref Rng & Units 12/28/2020 BUN 6 - 20 mg/dL 51 (H) CREATININE 0.6 - 1.2 mg/dL 3.5 (H) EGFR >=60.0 mL/min 16.6 (L) POTASSIUM 3.5 - 5.1 mmol/L 4.1 HGB 14.0 - 16.8 g/dL 11.4 (L) PROTEIN/ CREATININE RATIO, URINE <150 mg/g 241 (H) NEPH-FLOW Latest Ref Rng & Units 01/10/2021 BUN 6 - 20 mg/dL 47 (H) CREATININE 0.6 - 1.2 mg/dL 3.0 (H) EGFR >=60.0 mL/min 19.7 (L) POTASSIUM 3.5 - 5.1 mmol/L 3.6 HGB 14.0 - 16.8 g/dL PROTEIN/ CREATININE RATIO, URINE <150 mg/g NEPH-FLOW Latest Ref Rng & Units 01/25/2021 BUN 6 - 20 mg/dL CREATININE 0.6 - 1.2 mg/dL EGFR >=60.0 mL/min POTASSIUM 3.5 - 5.1 mmol/L HGB 14.0 - 16.8 g/dL 12.0 (L) PROTEIN/ CREATININE RATIO, URINE <150 mg/g NEPH-FLOW Latest Ref Rng & Units 05/14/2021 08/20/2021 11/12/2021 Bun 6 - 20 mg/dL 41 (H) 30 (H) 33 (H) Cr 0.6 - 1.2 mg/dL 2.8 (H) 2.5 (H) 2.5 (H) eGFR >=60 mL/min 21.2 (L) 25 (L) 26 (L) K 3.5 - 5.1 mmol/L 4.1 3.7 3.8 Hb 14.0 - 16.8 g/dL Pro/Cr ratio <150 mg/g Latest Ref Rng 03/07/2022 06/26/2022 07/14/2022 CRF FOLLOW UP SODIUM 135 - 146 mmol/L 140 143 POTASSIUM 3.5 - 5.1 mmol/L 3.8 3.8 CHLORIDE 98 - 107 mmol/L 97 (L) 100 BUN 6 - 20 mg/dL 33 (H) 40 (H) GLUCOSE 70 - 120 mg/dL 312 (H) 202 (H) CREATININE 0.6 - 1.2 mg/dL 2.3 (H) 2.7 (H) ALBUMIN 3.8 - 5.0 g/dL 4.1 4.3 CALCIUM 8.4 - 10.2 mg/dL 9.2 9.7 CO2-TOTAL 22 - 32 mmol/L 30 29 Phosphorus 2.5 - 4.8 mg/dL 2.8 3.1 ASSESSMENT: CKD (chronic kidney disease) stage 4, GFR 15-29 ml/min ([facility]) (Primary) CKD stage 4 which has been progressive for the last few years. His GFR was as low as 11 while in [place]. After that Conner/Arb was stopped and with that GFR improved to around 25-30 range. Slight edema but stable and continue Lasix 80 twice daily. No Major symptoms. Continue same lasix and other meds. Long discussion about the meaning of GFR as well as multiple aspects of renal care. He has already decided that if he gets to dialysis he would prefer to do home peritoneal dialysis. I believe patient and his are very capable of doing this if and when this is needed. However his kidney function is 29 last checked August 2024 so no need of dialysis prep at this time. Will do full panel of labs today as below. Normal exam other than trace edema and no acute symptoms . Reviewed his medication list and current dosing is appropriate for his current GFR. Will call with the results once available and adjust medications as needed - NEPHROLOGY FOLLOW UP APPT (DEPARTMENT USE ONLY); Future; Expected date: 07/27/2025 - ALBUMIN / CREATININE RATIO, URINE; Future; Expected date: 01/25/2025 - CBC WITH WBC DIFFERENTIAL; Future; Expected date: 01/25/2025 - PTH; Future; Expected date: 01/25/2025 - RENAL FUNCTION PANEL; Future; Expected date: 01/25/2025 HTN, goal below 140/90 Blood pressure is at goal we will not be using Conner or Arb from now on. GFR improved dramatically from a low of 11 to current level of 30 after Conner I was stopped !! - NEPHROLOGY FOLLOW UP APPT (DEPARTMENT USE ONLY); Future; Expected date: 07/27/2025 - ALBUMIN / CREATININE RATIO, URINE; Future; Expected date: 01/25/2025 Type 2 diabetes mellitus with hemoglobin A1c goal of less than 8.0% ([facility]) Will check A1c tomorrow. Now follows with Endocrinology. He is on insulin as well as Jardiance andTrulicity last A1c was under 8%. Continue same medications as Jardiance as well as Trulicity both helps with renal protection. Current dose is appropriate for current GFR Uziel Islas MD documented in this encounter Nursing Notes * Norma Jones RN - 01/25/2025 4:38 PM EDT Follow up visit today. No recent illness or hospital stays. States he has some ankle swelling laterin the day. documented in this encounter Plan of Treatment Upcoming Encounters Date Type Department Care Team (Late st Contact Info) Description 03/09/2025 5:00 PM EDT Office Visit General Internal Medicine [facility] [address] [facility] [place] [address] Gaby Islas MD [address] [facility] [place] [address] 03/22/2025 9:30 AM EDT Office Visit Cardiology, [facility] [address] [place] [id number] Anand Llamas PA-C [address] [place] [address] 09/06/2025 5:00 PM EST Office Visit Nephrology, [facility] [address] [facility] [place] [address] Uziel Islas MD [address] [facility] [place] [address] 09/19/2025 4:00 PM EST Cardiac Studies Cardiac Studies, [facility] [address] [place] [phone] Scheduled Orders Name Type Priority Associated Diagnoses Orde r Schedule ALBUMIN / CREATININE RATIO, URINE Lab Routine Kidney disease, chronic, stage IV (GFR 15-29 ml/min) ([facility]) HTN, goal below 140/90 Expected: 01/25/2025, Expires: 01/25/2026 CBC WITH WBC DIFFERENTIAL Lab Routine Kidney disease, chronic, stage IV (GFR 15-29 ml/min) ([facility]) Expected: 01/25/2025 (Approximate), Expires: 07/24/2025 PTH Lab Routine Kidney disease, chronic, stage IV (GFR 15-29 ml/min) ([facility]) Expected: 01/25/2025 (Approximate), Expires: 07/24/2025 RENAL FUNCTION PANEL Lab Routine Kidney disease, chronic, stage IV (GFR 15-29 ml/min) ([facility]) Expected: 01/25/2025 (Approximate), Expires: 07/24/2025 Scheduled Procedures Name Priority Associated Diagnoses Date/Ti [...] 0 12/27/2021, 01/11/2021 Depression Screening 02/08/2025 02/09/2024 GFR 03/07/2025 09/07/2024, 07, 06/03/2023, Additional history exists HbA1c 03/07/2025 09/07/2024, 073 , 12/23/2023, Additional history exists DTap/Tdap Vaccines (3 - Td or Tdap) 03/10/2025 03/10/2015, 02/15/2015 Hgb 05/24/2025 05/24/2024, 11/27, 07/14/2022, Additional history exists PTH 05/24/2025 05/24/2024, 2 11/2022, 06/26/2020 Phosphate 05/24/2025 05/24/2024, 08/0 06/2023, 12/17/2022, Additional history exists Influenza Vaccine (FLU shot) (Season Ended) 2025 Albumin/Creatinine Ratio 09/07/2025 024, 08/23/2024, 02/25/2023, Additional history exists Colonoscopy 01/08/2026 01/08/2023 Nephrology Referral 01/25/2026 01/25/2025 Pneumococcal Vaccine: 50+ Years Completed 02/15/2015, 02/27/2014, [...] this encounter Medical Devices Implanted Type Area Product Safety Administrator Device Identifier Shelf Expiration Date Model / Serial / Lot Lens 15.0 Sa60at - [id number] Implanted:Qty: 1 on 02/28/2012 at [facility] Right: Eye [employer] 06/26/2016 SA60AT / [id number] / documented as of this encounter Visit Diagnoses Diagnosis Kidney disease, chronic, stage IV (GFR 15-29 ml/min) (HCC)- Primary Chronic kidney disease, Stage IV (severe) HTN, goal below 140/90 Unspecified essential hypertension documented in this encounter Care Teams Secondary School Teacher Librarian Relationship Specialty Start Date End Date Gaby Islas MD [address] [facility] [place] [address] PCP - General Internal Medicine 12/27/20 documented as of this encounter
--- OUTSIDE RECORDS SUMMARY | 2025-02-11 18:26 | External Medical Summary | Summary of Care ---
Author Name Unknown Organization [facility] Address [address] [place] [address] Phone [phone] Care Team Providers Care Director Of Coding Name Role Phone Gaby Islas MD Primary Care Provider [phone] Reason for Visit * Reason Onset Date Comments Encounter Created in Error 02/10/2025 Encounter Details Date Type Department Care Team (Late st Contact Info) Description 02/10/2025 Telephone Cardiology, [facility] [address] [place] [phone] Anand Llamas, PA-C [address] [place] [address] Encounter Created in Error Allergies Active Allergy Reactions Criticality Noted Date [...] Capsule 2 times a day. Active Pen [place] 32G X 5 MMIndications:Typ e 2 diabetes mellitus with hemoglobin A1c goal of less than 7.0% ([facility]) Use as directed. To use with Lantus solostar 35 Each 5 01/01/20 21 Active BD Eclipse Needle 25G X 5/8" (Needle (Disp))Indication s:Type 2 diabetes mellitus with hemoglobin A1c goal of less than 7.0% ([facility]) As directed to use with lispro 100 Each 01/26/20 Active FreeStyle Test In Vitro Strip (Glucose Blood) Use Test Strips 4-times a day as directed. Hba1c 05/14/21 -8.6 400 Strip 05/28/20 Active FreeStyle LancetsIndication s:Type 2 diabetes mellitus with hemoglobin A1c goal of less than 7.0% ([facility]) Check blood sugar 4 times daily. Hba1c 05/14/21 -8.6 IDDM 400 Each 3 05/28/20 Active Insulin Syringe-Needle U-100 30G X 1/2" 0.5 MLIndications:Typ e 2 diabetes mellitus with hemoglobin A1c goal of less than 7.0% ([facility]) Use as directed to use with lispro 100 Each 05/28/20 Active One-A-Day Mens 50+ Oral Tablet Take [...] disease, with long-term current use of insulin ([facility]),Type 2 diabetes mellitus with hemoglobin A1c goal of less than 7.0% ([facility]) Inject under the skin 15 Units daily with breakfast 60 mL 3 02/08/20 23 Active Trulicity 3 MG/0.5ML Subcutaneous Solution Pen-injector (Dulaglutide)Svetlana cations:Type 2 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 disease, with long-term current use of insulin ([facility]) INJECT 3 MG (0.5 ML) UNDER THE [...] disease, with long-term current use of insulin ([facility]),HTN, goal below 140/90 Take 1 tablet [...] daily 180 Tablet 3 01/31/20 25 Active Gabapentin 300 MG Oral Capsule (Neurontin)Indica tions:Type 2 DM with CKD stage 4 and hypertension ([facility]),Type 2 diabetes mellitus with diabetic nephropathy, without long-term current use of insulin ([facility]),Lumbar radiculopathy TAKE 1 CAPSULE BY MOUTH IN THE MORNING AND 3 CAP AT NIGHT 360 Capsule 1 02/11/20 25 Active Isosorbide Mononitrate ER 30 [...] PM EDT documented as of this encounter Plan of Treatment Upcoming Encounters Date Type Department Care Team (Late st Contact Info) Description 02/23/2025 5:00 PM EDT Office Visit General Internal Medicine [facility] [address] [facility] [place] [address] Gaby Islas MD [address] [facility] [place] [address] 03/22/2025 9:30 AM EDT Office Visit Cardiology, [facility] [address] [place] [phone] Anand Llamas PAVikramC [address] [place] [address] 09/06/2025 5:00 PM EST Office Visit Nephrology, [facility] [address] [facility] [place] [address] Uziel Islas MD [address] [facility] [place] [address] 09/19/2025 4:00 PM EST Cardiac Studies Cardiac Studies, [facility] [address] [place] [phone] Scheduled Procedures Name Priority Associated Diagnoses Date/Ti [...] this encounter Medical Devices Implanted Type Area Fancy Needleworker Device Identifier Shelf Expiration Date Model / Serial / Lot Lens 15.0 Sa60at - [id number] Implanted:Qty: 1 on 02/28/2012 at OR [facility] Right: Eye [employer] 06/26/2016 SA60AT / [id number] / documented as of this encounter Care Teams Director Of Coding Relationship Specialty Start Date End Date Gaby Islas MD [address] [facility] [place] [place] [address] PCP - General Internal Medicine 12/27/20 documented as of this encounter
--- OUTSIDE RECORDS SUMMARY | 2025-02-11 18:26 | External Medical Summary | Summary of Care ---
Author Name Unknown Organization [facility] Address [address] [place] [address] Phone [phone] Care Team Providers Care Communications Writer Name Role Phone Gayb Islas MD Primary Care Provider [phone] Reason for Visit * Reason Comments eRx-Medication Refill Encounter Details Date Type Department Care Team (Late st Contact Info) Description 02/09/2025 Refill General Internal Medicine [facility] [address] [place] [address] Manuel Messina MD [address] [place] [address] Type 2 DM with CKD stage 4 and hypertension ([facility]); Type 2 diabetes mellitus with diabetic nephropathy, without long-term current use of insulin ([facility]); Lumbar radiculopathy Allergies Active Allergy Reactions Criticality Noted Date [...] Capsule 2 times a day. Active Pen [place] 32G X 5 MMIndications:Type 2 diabetes mellitus with hemoglobin A1c goal of less than 7.0% ([facility]) Use as directed. To use with Lantus solostar 35 Each 5 1 Active BD Eclipse Needle 25G X 5/8" (Needle (Disp))Indications :Type 2 diabetes mellitus with hemoglobin A1c goal of less than 7.0% (HCC) As directed to use with lispro 100 Each 5 1 Active FreeStyle Test In Vitro Strip (Glucose Blood) Use Test Strips 4-times a day as directed. Hba1c 7 -8.6 400 Strip 3 1 Active FreeStyle LancetsIndications :Type 2 diabetes mellitus with hemoglobin A1c goal of less than 7.0% ([facility]) Check blood sugar 4 times daily. Hba1c 7/ -8.6 IDDM 400 Each 3 1 Active [...] disease, with long-term current use of insulin ([facility]),Type 2 diabetes mellitus with hemoglobin A1c goal of less than 7.0% ([facility]) Inject under the skin 15 Units daily with breakfast 60 mL 3 3 Active Trulicity 3 MG/0.5ML Subcutaneous Solution Pen-injector (Dulaglutide)Indic ations:Type 2 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 disease, with long-term current use of insulin ([facility]) INJECT 3 MG (0.5 ML) UNDER THE SKIN ONCE A WEEK 6 mL 3 3 Active Magnesium 400 MG Oral Tablet Take 1 Tablet by mouth in the morning. Active Isosorbide Mononitrate ER 30 MG Oral Tablet Extended Release 24 Hour (Imdur) Take 1 Tablet by mouth in the morning. 31 Tablet 5 3 Active Metoprolol Succinate ER 50 MG Oral Tablet Extended Release 24 Hour (toPROL XL)Indications:Car diomyopathy, unspecified type (HCC),HTN, goal below 140/90 Take 1 tablet by mouth twice daily 180 Tablet 3 4 Active Furosemide 80 MG Oral Tablet (Lasix)Indications :Type 2 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 disease, with long-term current use of insulin ([facility]),HTN, goal below 140/90 Take 1 tablet [...] DM with CKD stage 4 and hypertension ([facility]),Type 2 diabetes mellitus with diabetic nephropathy, without long-term current use of insulin ([facility]),Lumbar radiculopathy TAKE 1 CAPSULE BY MOUTH IN THE MORNING AND 2 AT NIGHT 180 Capsule 5 Active Insulin Lispro (1 Unit Dial) 100 UNIT/ML Subcutaneous Solution Pen-injector (Admelog) Inject 20 Units under the skin daily before breakfast. 5 Active hydrALAZINE HCl 50 MG Oral Tablet (Apresoline)Indica tions:HTN, goal below 140/90 Take 1 tablet by mouth twice daily 180 Tablet 3 5 Active documented as of this encounter [...] encounter Miscellaneous Notes * Telephone Encounter - Michele Hanley - 02/09/2025 7:23 PM EDTRefused Prescriptions: Disp Refills Gabapentin 300 MG Oral Capsule (Neurontin) 180 Ca*0 Sig: TAKE 1CAPSULE BY MOUTH IN THE MORNING AND TAKE 2 AT NIGHTRefused By: DOMINICK HANLEYeason for Refusal: Duplicate Request documented in this encounter Plan of Treatment Upcoming Encounters Date Type Department Care Team (Late st Contact Info) Description 02/23/2025 5:00 PM EDT Office Visit General Internal Medicine [facility] [address] [place] [address] Gaby Islas MD [address] [place] [address] 03/22/2025 9:30 AM EDT Office Visit Cardiology, [facility] [address] [place] [phone] Anand Llamas PA-C [address] [place] [address] 09/06/2025 5:00 PM EST Office Visit Nephrology, [facility] [address] [place] [address] Uziel Islas MD [address] [place] [address] 09/19/2025 4:00 PM EST Cardiac Studies Cardiac Studies, [facility] [address] [place] [phone] Scheduled Procedures Name Priority Associated Diagnoses Date/Ti [...] 12/17/2022, Additional history exists Phosphate 02/01/2026 02/01/2025, 3 , 06/03/2023, Additional history exists Albumin/Creatinine Ratio 02/02/2026 [...] this encounter Medical Devices Implanted Type Area Pulp Tester Device Identifier Shelf Expiration Date Model / Serial / Lot Lens 15.0 Sa60at - [id number] Implanted:Qty: 1 on 02/28/2012 at OR [facility] Right: Eye [employer] 06/26/2016 SA60AT / [id number] / documented as of this encounter Visit Diagnoses Diagnosis Type 2 DM with CKD stage 4 and hypertension (HCC) Type 2 diabetes mellitus with diabetic nephropathy, without long-term current use of insulin (HCC) Lumbar radiculopathy Thoracic or lumbosacral neuritis or radiculitis, unspecified documented in this encounter Care Teams Communications Writer Relationship Specialty Start Date End Date Gaby Islas MD [address] [place] [address] PCP - General Internal Medicine 12/27/20 documented as of this encounter
--- OUTSIDE RECORDS SUMMARY | 2025-02-11 18:26 | External Medical Summary | Summary of Care ---
Author Name Unknown Organization [facility] Address [address] [place] [address] Phone [phone] Care Team Providers Care Game Design Instructor Name Role Phone Gaby Islas MD Primary Care Provider [phone] Reason for Visit * Reason Onset Date Comments Test Results 02/02/2025 Encounter Details Date Type Department Care Team (Late st Contact Info) Description 02/02/2025 Telephone Nephrology, [facility] [address] [place] [address] Uziel Islas MD [address] [place] [address] Test Results Allergies Active Allergy Reactions Criticality Noted Date Comments Lisinopril Anaphylaxis High 03/17/2017 when taken in conjunction w/ Metformin documented as of this encounter (statuses as of 02/02/2025) Medications Cholecalciferol 25 MCG (1000 UT) Oral Capsule Take by mouth daily. Active Cyanocobalamin 500 MCG Oral Tablet Take 1 Tablet by mouth in the morning. Active Polysaccharide Iron Complex 150 MG Oral Capsule 2 times a day. Active Pen [place] 32G X 5 MMIndications:Type 2 diabetes mellitus with hemoglobin A1c goal of less than 7.0% (HCC) Use as directed. To use with Lantus [...] directed. Hba1c 05/14/21 -8.6 400 Strip 3 1 Active FreeStyle LancetsIndications :Type 2 diabetes mellitus with hemoglobin A1c goal of less than 7.0% ([facility]) Check blood sugar 4 times daily. Hba1c 05/14/21 -8.6 IDDM 400 Each 3 1 Active [...] disease, with long-term current use of insulin ([facility]),Type 2 diabetes mellitus with hemoglobin A1c goal of less than 7.0% ([facility]) Inject under the skin 15 Units daily with breakfast 60 mL 3 3 Active Trulicity 3 MG/0.5ML Subcutaneous Solution Pen-injector (Dulaglutide)Indic ations:Type 2 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 disease, with long-term current use of insulin ([facility]) INJECT 3 MG (0.5 ML) UNDER THE [...] disease, with long-term current use of insulin ([facility]),HTN, goal below 140/90 Take 1 tablet by [...] DM with CKD stage 4 and hypertension ([facility]),Type 2 diabetes mellitus with diabetic nephropathy, without long-term current use of insulin ([facility]),Lumbar radiculopathy TAKE 1 CAPSULE BY MOUTH IN [...] as of this encounter (statuses as of 02/02/2025) Active Problems Problem Noted Date Diagnosed Date Type 2 diabetes mellitus wit h hemoglobin A1c goal of less than 8.0% 01/25/2021 Type 2 diabetes mellitus wit h stage 4 chronic kidney disease, with long-term current use of insulin 12/27/2020 Cardiomyopathy 12/27/2020 Hyperlipidemia with target LDL less than 100 01/2021 HTN, goal below 140/90 12/27/2020 documented as of this encounter (statuses as of 02/02/2025) Resolved Problems Problem Noted Date Diagnosed Date Resolved Date Cortical senile cataract 02/14/2012 documented as of this encounter (statuses as of 02/02/2025) Immunizations Name Administration Dates Next Due COVID-19 [...] encounter Miscellaneous Notes * Telephone Encounter - Norma Jones RN - 02/02/2025 12:28 PM EDT TE with pt regarding test results. Aware to increase potassium in diet. No medication changes. * Telephone Encounter - Norma Jones RN - 02/02/2025 12:26 PM EDT ----- Message from Uziel Islas MD sent at 02/02/2025 11:47 AM EDT ----- Kidney function even better at 32. Very borderline low K--can try to eat low calorie food/drinks but high in K. Continue same meds documented in this encounter Plan of Treatment Upcoming Encounters Date Type Department Care Team (Late st Contact Info) Description 02/23/2025 5:00 PM EDT Office Visit General Internal Medicine [facility] [address] [place] [address] Gaby Islas MD [address] [place] [address] 03/22/2025 9:30 AM EDT Office Visit Cardiology, [facility] [address] [place] [phone] Anand Llamas PA-C [address] [place] [address] 09/06/2025 5:00 PM EST Office Visit Nephrology, [facility] [address] [place] [address] Uziel Islas MD [address] [place] [address] 09/19/2025 4:00 PM EST Cardiac Studies Cardiac Studies, [facility] [address] [place] [phone] Scheduled [...] 08/03/2025 02/01/2025, 08/26, 05/24/2024, Additional history exists Albumin/Creatinine Ratio 09/07/202509/07/2 024, 08/23/2024, 02/25/2023, Additional history exists Colonoscopy 01/08/2026 01/08/2023 Nephrology Referral 01/25/2026 01/25/2025 Hgb 02/01/2026 02/01/2025, 04/27, 12/17/2022, Additional history exists PTH 02/01/2026 02/01/2025, 04/27, 12/17/2022, Additional history exists Phosphate 02/01/2026 02/01/2025, 04/27, 06/03/2023, Additional history exists Pneumococcal Vaccine: 50+ Years [...] this encounter Medical Devices Implanted Type Area Water Resources Program Director Device Identifier Shelf Expiration Date Model / Serial / Lot Lens 15.0 Sa60at - [id number] Implanted:Qty: 1 on 02/28/2012 at OR [facility] Right: Eye [employer] 06/26/2016 SA60AT / [id number] / documented as of this encounter Care Teams Game Design Instructor Relationship Specialty Start Date End Date Gaby Islas MD [address] [facility] [place] [address] PCP - General Internal Medicine 12/27/20 documented as of this encounter
--- OUTSIDE RECORDS SUMMARY | 2025-02-11 18:26 | External Medical Summary ---
Author Name Unknown Address Unknown Organization [id number]:[facility] [place] [address] Laboratory Report Ordering Provider Test Date Status VIJI RIVERS 02/01/2025 07:22:13 Final Observation Date Value Abnormality Reference (Units ) Status WBC, Total 02/01/2025 07:22:13 6.89 4.00-10.8 0 (K/uL) Final RBC 02/01/2025 07:22:13 4.72 4.50-5.25 (M/uL) Final Hemoglobin 02/01/2025 07:22:13 15.0 14.0-16.8 (g/dL) Final HCT 02/01/2025 07:22:13 45.6 40.0-48.4 (%) Final MCV 02/01/2025 07:22:13 96.6 82.0-99.5 (fL) Final MCH 02/01/2025 07:22:13 31.8 27.0-34.0 (pg) Final MCHC 02/01/2025 07:22:13 32.9 32.0-36.0 (g/dL) Final RDW 02/01/2025 07:22:13 13.6 11.5-15.5 (%) Final Platelets 02/01/2025 07:22:13 118 Below low normal 140 -400 (K/uL) Final MPV 02/01/2025 07:22:13 13.2 6.6-11.1 ( fL) Final Performing Location [facility] [place] [address]
--- OUTSIDE RECORDS SUMMARY | 2025-02-11 18:26 | External Medical Summary ---
Author Name Unknown Address Unknown Organization [id number]:[facility] [place] [facility] [address] [place] [address] Laboratory Report Ordering Provider Test Date Status VIJI RIVERS 02/01/2025 07:22:13 Final Observation Date Value Abnormality Reference (Units ) Status Parathyrin.intact [Mass/volume] in Serum or Plasma 02/01/2025 07:22:13 140 Above high normal 15-65 (pg/mL) Final Performing Location [facility] [place] - [address] [place] [address]
--- OUTSIDE RECORDS SUMMARY | 2025-02-11 18:26 | External Medical Summary ---
Author Name Unknown Address Unknown Organization [id number]:[facility] [place] [address] Laboratory Report Ordering Provider Test Date Status VIJI RIVERS 02/01/2025 07:22:13 Final Observation Date Value Abnormality Reference (Units ) Status SYNC LEUKOCYTES IN BLOOD BY AUTOMATED COUNT 02/01/2025 07:22:13 6.89 4.00-10.80 (K/uL) Final Segs 02/01/2025 07:22:13 61.3 40.0-75.0 (%) Final Lymphs % 02/01/2025 07:22:13 27.1 18.0-42.0 (%) Final Monos 02/01/2025 07:22:13 8.3 1.0-11.0 (%) Final Eosinophils 02/01/2025 07:22:13 3.2 0.0-6.0 (%) Final Basos 02/01/2025 07:22:13 0.1 0.0-2.0 (%) Final Absolute Segs 02/01/2025 07:22:13 4.22 1.80-7.70 (K/uL) Final Lymphs, absolute 02/01/2025 07:22:13 1.87 1.00-4.80 (K/ul) Final Monos, Abs 02/01/2025 07:22:13 0.57 0.00-1.10 (K/uL) Final Eos, Abs 02/01/2025 07:22:13 0.22 0.00-0.70 (K/uL) Final Basos, Abs 02/01/2025 07:22:13 0.01 0.00-0.20 (K/uL) Final Performing Location [facility] [place] [address]
--- OUTSIDE RECORDS SUMMARY | 2025-02-11 18:26 | External Medical Summary | Summary of Care ---
Author Name Unknown Organization [facility] Address [address] [place] [address] Phone [phone] Care Team Providers Care Rehabilitation Therapist Name Role Phone Gaby Islas MD Primary Care Provider [phone] Reason for Visit * Reason Comments Outpatient Testing Encounter Details Date Type Department Care Team (Late st Contact Info) Description 02/01/2025 7:20 AM EDT [facility] [address] [place] [phone] [place], Lab Scenery [address] [place] [address] Hyperlipidemia with target LDL less than 100; HTN, goal below 140/90; Type 2 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 disease, with long-term current use of insulin ([facility]); Type 2 diabetes mellitus with hemoglobin A1c goal of less than 8.0% ([facility]); Kidney disease, chronic, stage IV (GFR 15-29 ml/min) ([facility]) Allergies Active Allergy Reactions Criticality Noted Date Comments Lisinopril Anaphylaxis High 03/17/2017 when taken in conjunction w/ Metformin documented as of this encounter (statuses as of 02/01/2025) Medications Cholecalciferol 25 MCG (1000 UT) Oral Capsule Take by mouth daily. Active Cyanocobalamin 500 MCG Oral Tablet Take 1 Tablet by mouth in the morning. Active Polysaccharide Iron Complex 150 MG Oral Capsule 2 times a day. Active Pen [place] 32G X 5 MMIndications:Type 2 diabetes mellitus [...] with long-term current use of insulin ([facility]) INJECT 3 MG (0.5 ML) UNDER THE [...] 24 Hour (toPROL XL)Indications:Car diomyopathy, unspecified type ([facility]),HTN, goal below 140/90 Take 1 tablet by mouth twice daily 180 Tablet 3 4 Active Furosemide 80 MG Oral Tablet (Lasix)Indications :Type 2 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 disease, with long-term current use of insulin ([facility]),HTN, goal below 140/90 Take 1 tablet by [...] with CKD stage 4 and hypertension ([facility]),Type 2 diabetes mellitus with diabetic nephropathy, without long-term current use of insulin ([facility]),Lumbar radiculopathy TAKE 1 CAPSULE BY MOUTH IN [...] as of this encounter (statuses as of 02/01/2025) Active Problems Problem Noted Date Diagnosed Date Type 2 diabetes mellitus wit h hemoglobin A1c goal of less than 8.0% 01/25/2021 Type 2 diabetes mellitus wit h stage 4 chronic kidney disease, with long-term current use of insulin 12/27/2020 Cardiomyopathy 12/27/2020 Hyperlipidemia with target LDL less than 100 01/2021 HTN, goal below 140/90 12/27/2020 documented as of this encounter (statuses as of 02/01/2025) Resolved Problems Problem Noted Date Diagnosed Date Resolved Date Cortical senile cataract 02/14/2012 documented as of this encounter (statuses as of 02/01/2025) Immunizations Name Administration Dates Next Due COVID-19 [...] PM EDT Office Visit [facility] [place] [address] Gaby Islas MD 200 [facility] [place] [address] 03/22/2025 9:30 AM EDT Office Visit Cardiology, [facility] [address] [place] [phone] Anand Llamas PA-C [address] [place] [address] 09/06/2025 5:00 PM EST Office Visit Nephrology, [facility] [address] [place] [address] Uziel Islas MD 200 [facility] [place] [address] 09/19/2025 4:00 PM EST Cardiac Studies Cardiac Studies, [facility] [address] [place] [phone] Pending Results Name Type Priority Associated Diagnoses Date /Time COMPREHENSIVE METABOLIC PANEL Lab Routine Hyperlipidemia with target LDL less than 100 HTN, goal below 140/90 02/01/2025 7:22 AM EDT HEMOGLOBIN A1C Lab Routine Type 2 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 disease, with long-term current use of insulin (HCC) Type 2 diabetes mellitus with hemoglobin A1c goal of less than 8.0% ([facility]) 02/01/2025 7:22 AM EDT LIPID PANEL WITH DIRECT LDL IF TG IS HIGH Lab Routine Hyperlipidemia with target LDL less than 100 02/01/2025 7:22 AM EDT CBC WITH WBC DIFFERENTIAL Lab Routine Kidney disease, chronic, stage IV (GFR 15-29 ml/min) ([facility]) 02/01/2025 7:22 AM EDT PTH Lab Routine Kidney disease, chronic, stage IV (GFR 15-29 ml/min) ([facility]) 02/01/2025 7:22 AM EDT CBC Lab Routine Kidney disease, chronic, stage IV (GFR 15-29 ml/min) ([facility]) 02/01/2025 7:22 AM EDT DIFFERENTIAL, AUTOMATED Lab Routine Kidney disease, chronic, stage IV (GFR 15-29 ml/min) ([facility]) 02/01/2025 7:22 AM EDT PHOSPHORUS Lab Routine Kidney disease, chronic, stage IV (GFR 15-29 ml/min) ([facility]) 02/01/2025 7:22 AM EDT ALBUMIN / CREATININE RATIO, URINE Lab Routine Kidney disease, chronic, stage IV (GFR 15-29 ml/min) ([facility]) HTN, goal below 140/90 02/01/2025 7:22 AM EDT Scheduled Procedures Name Priority Associated Diagnoses Date/Ti [...] Depression Screening 02/08/2025 02/09/2024 GFR 03/07/2025 09/07/2024, 04/27, 06/03/2023, Additional history exists HbA1c 03/07/2025 09/07/2024, 04/27, 12/23/2023, Additional history exists DTap/Tdap Vaccines (3 - Td or Tdap) 03/10/2025 03/10/2015, 02/15/2015 Hgb 05/24/2025 05/24/2024, 11/27, 07/14/2022, Additional history exists PTH 05/24/2025 05/24/2024, 11/27, 06/26/2020 Phosphate 05/24/2025 05/24/2024, 08/0 06/2023, 12/17/2022, [...] this encounter Medical Devices Implanted Type Area Stage Electrician Device Identifier Shelf Expiration Date Model / Serial / Lot Lens 15.0 Sa60at - [id number] Implanted:Qty: 1 on 02/28/2012 at OR [facility] Right: Eye [employer] 06/26/2016 SA60AT / [id number] / documented as of this encounter Visit Diagnoses Diagnosis Hyperlipidemia with target LDL less than 100 Other and unspecified hyperlipidemia HTN, goal below 140/90 Unspecified essential hypertension Type 2 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 disease, with long-term current use of insulin (HCC) Type 2 diabetes mellitus with hemoglobin A1c goal of less than 8.0% (HCC) Kidney disease, chronic, stage IV (GFR 15-29 ml/min) (HCC) Chronic kidney disease, Stage IV (severe) documented in this encounter Care Teams Rehabilitation Therapist Relationship Specialty Start Date End Date Gaby Islas MD 200 [facility] [place] [address] PCP - General Internal Medicine 12/27/20 documented as of this encounter
--- OUTSIDE RECORDS SUMMARY | 2025-02-11 18:26 | External Medical Summary | Summary of Care ---
Author Name Unknown Organization [facility] Address [address] [place] [address] Phone [phone] Care Team Providers Care Emergency Medical Technician/Driver Name Role Phone Gaby Islas MD Primary Care Provider [phone] Reason for Visit * Reason Onset Date Comments Test Results Lab 02/03/2025 Encounter Details Date Type Department Care Team (Late st Contact Info) Description 02/03/2025 Telephone General Internal Medicine [facility] 200 [place] [address] Gaby Islas MD 200 [place] [address] Test Results Lab Allergies Active Allergy Reactions Criticality Noted Date Comments Lisinopril Anaphylaxis High 03/17/2017 when taken in conjunction w/ Metformin documented as of this encounter (statuses as of 02/03/2025) Medications Cholecalciferol 25 MCG (1000 UT) Oral Capsule Take by mouth daily. Active Cyanocobalamin 500 MCG Oral Tablet Take 1 Tablet by mouth in the morning. Active Polysaccharide Iron Complex 150 MG Oral Capsule 2 times a day. Active Pen [place] 32G X 5 MMIndications:Type 2 diabetes mellitus [...] disease, with long-term current use of insulin ([facility]),Type 2 diabetes mellitus with hemoglobin A1c goal of less than 7.0% ([facility]) Inject under the skin 15 Units daily with breakfast 60 mL 3 3 Active Trulicity 3 MG/0.5ML Subcutaneous Solution Pen-injector (Dulaglutide)Indic ations:Type 2 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 disease, with long-term current use of insulin ([facility]) INJECT 3 MG (0.5 ML) UNDER THE [...] disease, with long-term current use of insulin ([facility]),HTN, goal below 140/90 Take 1 tablet by [...] DM with CKD stage 4 and hypertension ([facility]),Type 2 diabetes mellitus with diabetic nephropathy, without long-term current use of insulin ([facility]),Lumbar radiculopathy TAKE 1 CAPSULE BY MOUTH IN [...] as of this encounter (statuses as of 02/03/2025) Active Problems Problem Noted Date Diagnosed Date Type 2 diabetes mellitus wit h hemoglobin A1c goal of less than 8.0% 01/25/2021 Type 2 diabetes mellitus wit h stage 4 chronic kidney disease, with long-term current use of insulin 12/27/2020 Cardiomyopathy 12/27/2020 Hyperlipidemia with target LDL less than 100 01/2021 HTN, goal below 140/90 12/27/2020 documented as of this encounter (statuses as of 02/03/2025) Resolved Problems Problem Noted Date Diagnosed Date Resolved Date Cortical senile cataract 02/14/2012 documented as of this encounter (statuses as of 02/03/2025) Immunizations Name Administration Dates Next Due COVID-19 [...] encounter Miscellaneous Notes * Telephone Encounter - Luz Wesley CCMA - 02/03/2025 3:38 PM EDT Labs were faxed and received * Telephone Encounter - Luz Wesley CCMA - 02/03/2025 3:38 PM EDT ----- Message from Gaby Islas MD sent at 02/03/2025 3:16 PM EDT ----- Mg G sent. Please fax this to MARISELA [email or web address] who manages his DM documented in this encounter Plan of Treatment Upcoming Encounters Date Type Department Care Team (Late st Contact Info) Description 02/23/2025 5:00 PM EDT Office Visit General Internal Medicine [facility] [address] [place] [address] Gaby Islas MD [address] [place] [address] 03/22/2025 9:30 AM EDT Office Visit Cardiology, [facility] [address] [place] [phone] Anand Llamas PAVikramC [address] [place] [address] 09/06/2025 5:00 PM EST Office Visit Nephrology, [facility] [address] [place] [address] Uziel Islas MD [address] [place] [address] 09/19/2025 4:00 PM EST Cardiac Studies Cardiac Studies, [facility] [address] [place] [phone] Scheduled Procedures Name Priority Associated Diagnoses Date/Ti [...] this encounter Medical Devices Implanted Type Area Guideman Device Identifier Shelf Expiration Date Model / Serial / Lot Lens 15.0 Sa60at - [id number] Implanted:Qty: 1 on 02/28/2012 at OR [facility] Right: Eye [employer] 06/26/2016 SA60AT / [id number] / documented as of this encounter Care Teams Emergency Medical Technician/Driver Relationship Specialty Start Date End Date Gaby Islas MD 200 [facility] [place] [address] PCP - General Internal Medicine 12/27/20 documented as of this encounter
--- OUTSIDE RECORDS SUMMARY | 2025-02-11 18:26 | External Medical Summary | Summary of Care ---
Author Name Unknown Organization [facility] Address [address] [place] [address] Phone [phone] Care Team Providers Care Right Of Way Cutter Name Role Phone Gaby Islas MD Primary Care Provider [phone] Reason for Visit * Reason Comments Outpatient Testing Encounter Details Date Type Department Care Team (Late st Contact Info) Description 02/01/2025 7:20 AM EDT [facility] [address] [place] [phone] [place], Lab Scenery [address] [place] [address] Hyperlipidemia with target LDL less than 100; HTN, goal below 140/90; Type 2 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 disease, with long-term current use of insulin ([facility]); Type 2 diabetes mellitus with hemoglobin A1c goal of less than 8.0% ([facility]); Kidney disease, chronic, stage IV (GFR 15-29 ml/min) ([facility]) Allergies Active Allergy Reactions Criticality Noted Date [...] Capsule 2 times a day. Active Pen [place] 32G X 5 MMIndications:Type 2 diabetes mellitus [...] disease, with long-term current use of insulin ([facility]) INJECT 3 MG (0.5 [...] 24 Hour (toPROL XL)Indications:Car diomyopathy, unspecified type ([facility]),HTN, goal below 140/90 Take 1 tablet by mouth twice daily 180 Tablet 3 4 Active Furosemide 80 MG Oral Tablet (Lasix)Indications :Type 2 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 disease, with long-term current use of insulin ([facility]),HTN, goal below 140/90 Take [...] DM with CKD stage 4 and hypertension ([facility]),Type 2 diabetes mellitus with diabetic nephropathy, without long-term current use of insulin ([facility]),Lumbar radiculopathy TAKE 1 CAPSULE [...] PM EDT Office Visit General Internal Medicine [facility] [address] [facility] [place] [address] Gaby Islas MD 200 [facility] [place] [address] 03/22/2025 9:30 AM EDT Office Visit Cardiology, [facility] [address] [place] [phone] Anand Llamas PA-C [address] [place] [address] 09/06/2025 5:00 PM EST Office Visit Nephrology, [facility] [address] [place] [address] Uziel Islas MD 200 [facility] [place] [address] 09/19/2025 4:00 PM EST Cardiac Studies Cardiac Studies, [facility] [address] [place] [phone] Pending Results Name Type Priority Associated Diagnoses Date /Time COMPREHENSIVE METABOLIC PANEL Lab Routine Hyperlipidemia with target LDL less than 100 HTN, goal below 140/90 02/01/2025 7:22 AM EDT HEMOGLOBIN A1C Lab Routine Type 2 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 disease, with long-term current use of insulin (HCC) Type 2 diabetes mellitus with hemoglobin A1c goal of less than 8.0% ([facility]) 02/01/2025 7:22 AM EDT LIPID PANEL WITH DIRECT LDL IF TG IS HIGH Lab Routine Hyperlipidemia with target LDL less than 100 02/01/2025 7:22 AM EDT CBC WITH WBC DIFFERENTIAL Lab Routine Kidney disease, chronic, stage IV (GFR 15-29 ml/min) ([facility]) 02/01/2025 7:22 AM EDT PTH Lab Routine Kidney disease, chronic, stage IV (GFR 15-29 ml/min) ([facility]) 02/01/2025 7:22 AM EDT CBC Lab Routine Kidney disease, chronic, stage IV (GFR 15-29 ml/min) ([facility]) 02/01/2025 7:22 AM EDT DIFFERENTIAL, AUTOMATED Lab Routine Kidney disease, chronic, stage IV (GFR 15-29 ml/min) ([facility]) 02/01/2025 7:22 AM EDT PHOSPHORUS Lab Routine Kidney disease, chronic, stage IV (GFR 15-29 ml/min) ([facility]) 02/01/2025 7:22 AM EDT Scheduled Procedures Name [...] this encounter Medical Devices Implanted Type Area Straw Hat Brim Cutter Operator Device Identifier Shelf Expiration Date Model / Serial / Lot Lens 15.0 Sa60at - [id number] Implanted:Qty: 1 on 02/28/2012 at OR [facility] Right: Eye [employer] 06/26/2016 SA60AT / [id number] / documented as of this encounter [...] (severe) documented in this encounter Care Teams Right Of Way Cutter Relationship Specialty Start Date End Date Gaby Islas MD 200 [place] [address] PCP - General Internal Medicine 12/27/20 documented as of this encounter
--- OUTSIDE RECORDS SUMMARY | 2025-02-11 18:26 | External Medical Summary ---
Author Name Unknown Address Unknown Organization [id number]:LABORATORY [facility] [place] - [address] [place] [address] Laboratory Report Ordering Provider Test Date Status VIJI OCAMPO 02/01/2025 07:22:13 Final Observation Date Value Abnormality Reference (Units ) Status Triglyceride 02/01/2025 07:22:13 221 Above high normal <=174 (mg/dL) Final Triglyceride Reference Range s (mg/dL):
<150 Acceptable
150-174 Borderline high
175-499 High
>=500 Very high Cholesterol 02/01/2025 07:22:13 106 <200 (mg /dL) Final Total Cholesterol Reference Ranges (mg/dL):
<200 Desirable
200-239 Borderline high
>=240 High HDL 02/01/2025 07:22:13 34 Below low normal >39 (mg/dL) Final HDL Cholesterol Reference Ra nges (mg/dL):
>=60 High (Desirable)
<50 Low (Undesirable) For Females
<40 Low (Undesirable) For Males NON-HDL CHOLESTEROL 02/01/2025 07:22:13 72 <=159 (mg/dL) Final Non-HDL Cholesterol Referenc e Range (mg/dL):
<100 Target level for high risk ASCVD patient
<130 Optimal for general population
130-159 Near optimal for general population
160-189 Borderline High
190-219 High
>=220 Very High Performing Location LABORATORY [facility] - [address] [place] [address]
--- OUTSIDE RECORDS SUMMARY | 2025-02-11 18:26 | External Medical Summary | Summary of Care ---
Author Name Unknown Organization [facility] Address [address] [place] [address] Phone [phone] Care Team Providers Care Tile And Marble Installer Name Role Phone Gaby Islas MD Primary Care Provider [phone] Reason for Visit * Reason Comments Outpatient Testing Encounter Details Date Type Department Care Team (Late st Contact Info) Description 02/02/2025 2:10 PM EDT Laboratory Laboratory [facility] [address] [place] [phone] [place], Lab Scenery [address] [place] [address] Arrived Allergies Active Allergy Reactions Criticality Noted Date [...] Capsule 2 times a day. Active Pen [place] 32G X 5 MMIndications:Type 2 diabetes mellitus [...] hemoglobin A1c goal of less than 7.0% ([facility]) Check blood sugar 4 times daily. Hba1c 05/14/21 -8.6 IDDM 400 Each 3 1 Active Insulin Syringe-Needle U-100 30G X 1/2" 0.5 MLIndications:Type 2 diabetes mellitus with hemoglobin A1c goal of less than 7.0% ([facility]) Use as directed to use with lispro [...] disease, with long-term current use of insulin ([facility]),Type 2 diabetes mellitus with hemoglobin A1c goal of less than 7.0% ([facility]) Inject under the skin 15 Units daily with breakfast 60 mL 3 3 Active Trulicity 3 MG/0.5ML Subcutaneous Solution Pen-injector (Dulaglutide)Indic ations:Type 2 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 disease, with long-term current use of insulin ([facility]) INJECT 3 MG (0.5 ML) [...] disease, with long-term current use of insulin ([facility]),HTN, goal below 140/90 Take 1 [...] DM with CKD stage 4 and hypertension ([facility]),Type 2 diabetes mellitus with diabetic nephropathy, without long-term current use of insulin ([facility]),Lumbar radiculopathy TAKE 1 CAPSULE BY [...] PM EDT Office Visit General Internal Medicine [facility] 200 [facility] [place] [address] Gaby Islas MD 200 [facility] [place] [address] 03/22/2025 9:30 AM EDT Office Visit Cardiology, [facility] [address] [place] [phone] Anand Llamas PA-C [address] [place] [address] 09/06/2025 5:00 PM EST Office Visit Nephrology, [facility] 200 [facility] [place] [address] Uziel Islas MD 200 [facility] [place] [address] 09/19/2025 4:00 PM EST Cardiac Studies Cardiac Studies, [facility] [address] [place] [phone] Scheduled Procedures Name Priority Associated Diagnoses Date/Ti [...] 08/26, 05/24/2024, Additional history exists Albumin/Creatinine Ratio 09/07/202509/07/ 024, 08/23/2024, 02/25/2023, Additional history exists Colonoscopy [...] this encounter Medical Devices Implanted Type Area Executive Recruiter Device Identifier Shelf Expiration Date Model / Serial / Lot Lens 15.0 Sa60at - [id number] Implanted:Qty: 1 on 02/28/2012 at OR [facility] Right: Eye [employer] 06/26/2016 SA60AT / [id number] / documented as of this encounter Care Teams Tile And Marble Installer Relationship Specialty Start Date End Date Gaby Islas MD 200 [facility] [place] [address] PCP - General Internal Medicine 12/27/20 documented as of this encounter
--- OUTSIDE RECORDS SUMMARY | 2025-02-11 18:26 | External Medical Summary ---
Author Name Unknown Address Unknown Organization K01:[facility] [place] [address] [place] [address] Laboratory Report Ordering Provider Test Date Status VIJI OCAMPO 02/01/2025 07:22:13 Final Observation Date Value Abnormality Reference (Units ) Status LDL, (direct) 02/01/2025 07:22:13 42 <=129 (mg/dL) Final LDL Cholesterol Reference Ra nges (mg/dL):
<70 � � Target level for high risk ASCVD patient
<100 � �Optimal for general population
100-129 Near optimal for general population
130-159 Borderline high
160-189 High
>=190 � Very high Performing Location LAB[facility] - [address] [place] [address]
--- OUTSIDE RECORDS SUMMARY | 2025-02-11 18:26 | External Medical Summary | Summary of Care ---
Author Name Unknown Organization [facility] Address [address] [place] [address] Phone [phone] Care Team Providers Care Station Air Traffic Control Specialist Name Role Phone Gaby Islas MD Primary Care Provider [phone] Reason for Visit * Reason Comments Outpatient Testing Encounter Details Date Type Department Care Team (Late st Contact Info) Description 02/01/2025 7:20 AM EDT [facility] [address] [place] [phone] [place], Lab Scenery [address] [place] [address] Hyperlipidemia with target LDL less than 100; HTN, goal below 140/90; Type 2 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 disease, with long-term current use of insulin ([facility]); Type 2 diabetes mellitus with hemoglobin A1c goal of less than 8.0% ([facility]); Kidney disease, chronic, stage IV (GFR 15-29 ml/min) ([facility]) Allergies Active Allergy Reactions Criticality Noted Date [...] Capsule 2 times a day. Active Pen [place] 32G X 5 MMIndications:Type 2 diabetes mellitus [...] with long-term current use of insulin ([facility]) INJECT 3 MG (0.5 ML) UNDER THE [...] 24 Hour (toPROL XL)Indications:Car diomyopathy, unspecified type ([facility]),HTN, goal below 140/90 Take 1 tablet by mouth twice daily 180 Tablet 3 4 Active Furosemide 80 MG Oral Tablet (Lasix)Indications :Type 2 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 disease, with long-term current use of insulin ([facility]),HTN, goal below 140/90 Take 1 tablet by [...] with CKD stage 4 and hypertension ([facility]),Type 2 diabetes mellitus with diabetic nephropathy, without long-term current use of insulin ([facility]),Lumbar radiculopathy TAKE 1 CAPSULE BY MOUTH IN [...] PM EDT Office Visit General Internal Medicine [facility] [address] [facility] [address] [place] [address] Gaby Islas MD 200 [facility] [place] [address] 03/22/2025 9:30 AM EDT Office Visit Cardiology, [facility] [address] [place] [phone] Anand Llamas PA-C [address] [place] [address] 09/06/2025 5:00 PM EST Office Visit Nephrology, [facility] [address] [place] [address] Uziel Islas MD 200 [facility] [place] [address] 09/19/2025 4:00 PM EST Cardiac Studies Cardiac Studies, [facility] [address] [place] [phone] Pending Results Name Type Priority Associated Diagnoses Date /Time COMPREHENSIVE METABOLIC PANEL Lab Routine Hyperlipidemia with target LDL less than 100 HTN, goal below 140/90 02/01/2025 7:22 AM EDT HEMOGLOBIN A1C Lab Routine Type 2 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 disease, with long-term current use of insulin (HCC) Type 2 diabetes mellitus with hemoglobin A1c goal of less than 8.0% ([facility]) 02/01/2025 7:22 AM EDT LIPID PANEL WITH DIRECT LDL IF TG IS HIGH Lab Routine Hyperlipidemia with target LDL less than 100 02/01/2025 7:22 AM EDT PTH Lab Routine Kidney disease, chronic, stage IV (GFR 15-29 ml/min) ([facility]) 02/01/2025 7:22 AM EDT PHOSPHORUS Lab Routine Kidney disease, chronic, stage IV (GFR 15-29 ml/min) ([facility]) 02/01/2025 7:22 AM EDT Scheduled Procedures Name [...] Depression Screening 02/08/2025 02/09/2024 GFR 03/07/2025 09/07/2024, 3 , 06/03/2023, Additional history exists HbA1c 03/07/2025 09/07/2024, 073 , 12/23/2023, Additional history exists DTap/Tdap Vaccines (3 - Td or Tdap) 03/10/2025 03/10/2015, 02/15/2015 PTH 05/24/2025 05/24/2024, 02/2 11/2022, 06/26/2020 Phosphate 05/24/2025 05/24/2024, 08/0 06/2023, 12/17/2022, Additional history exists Influenza Vaccine (FLU shot) (Season Ended) 2025 Albumin/Creatinine Ratio 09/07/2025 024, 08/23/2024, 02/25/2023, Additional history exists Colonoscopy 01/08/2026 01/08/2023 Nephrology Referral 01/25/2026 01/25/2025 Hgb 02/01/2026 02/01/2025, 073 , 12/17/2022, Additional history exists Pneumococcal Vaccine: 50+ Years [...] this encounter Medical Devices Implanted Type Area Manager Consumer Device Identifier Shelf Expiration Date Model / Serial / Lot Lens 15.0 Sa60at - [id number] Implanted:Qty: 1 on 02/28/2012 at [place] [facility] Right: Eye [employer] 06/26/2016 [id number] / [id number] / documented as of this encounter Procedures Procedure Name Priority Date/Time Associated Diagnosis Comments DIFFERENTIAL, AUTOMATED Routine 02/01/2025 7:22 AM EDT Kidney disease, chronic, stage IV (GFR 15-29 ml/min) ([facility]) CBC Routine 02/01/2025 7:22 AM EDT Kidney disease, chronic, stage IV (GFR 15-29 ml/min) ([facility]) CBC Routine 02/01/2025 7:22 AM EDT Kidney disease, chronic, stage IV (GFR 15-29 ml/min) ([facility]) documented in this encounter Results * DIFFERENTIAL, AUTOMATED (02/01/2025 7:22 AM EDT) WBC 6.89 4.00 - 10.80 K/uL 02/01/2025 7:48 AM EDT [facility] 56-02 Neutrophils % 61.3 40.0 - 75.0 % 02/01/2025 7:48 AM EDT [facility] [place] 56-02 Lymphocytes % 27.1 18.0 - 42.0 % 02/01/2025 7:48 AM EDT [facility] [place] 56-02 Monocytes % 8.3 1.0 - 11.0 % 02/01/2025 7:48 AM EDT [facility] 56 Eosinophils % 3.2 0.0 - 6.0 % 02/01/2025 7:48 AM EDT [facility] 56 Basophils % 0.1 0.0 - 2.0 % 02/01/2025 7:48 AM EDT [facility] 56 Absolute Neutrophils 4.22 1.80 - 7.70 K/uL 02/01/2025 7:48 AM EDT [facility] 56 Absolute Lymphocytes 1.87 1.00 - 4.80 K/ul 02/01/2025 7:48 AM EDT [facility] 56 Absolute Monocytes 0.57 0.00 - 1.10 K/uL 02/01/2025 7:48 AM EDT [facility] 56 Absolute Eosinophils 0.22 0.00 - 0.70 K/uL 02/01/2025 7:48 AM EDT [facility] 56 Absolute Basophils 0.01 0.00 - 0.20 K/uL 02/01/2025 7:48 AM EDT [facility] 56 Blood Venous blood specimen / Unknown Venipuncture / Unknown 02/01/2025 7:22 AM EDT 02/01/2025 7:22 AM EDT us Uziel Islas MD LAB BLOOD ORDERABLES Final Res ult [facility] [address] [place] [address] * (ABNORMAL) CBC (02/01/2025 7:22 AM EDT) WBC 6.89 4.00 - 10.80 K/uL 02/01/2025 7:48 AM EDT [facility] 56 RBC 4.72 4.50 - 5.25 M/uL 02/01/2025 7:48 AM EDT [facility] 56 HGB 15.0 14.0 - 16.8 g/dL 02/01/2025 7:48 AM EDT [facility] 56 HCT 45.6 40.0 - 48.4 % 02/01/2025 7:48 AM EDT [facility] 56 MCV 96.6 82.0 - 99.5 fL 02/01/2025 7:48 AM EDT [facility] 56 MCH 31.8 27.0 - 34.0 pg 02/01/2025 7:48 AM EDT [facility] MCHC 32.9 32.0 - 36.0 g/dL 02/01/2025 7:48 AM EDT [facility] 56 RDW 13.6 11.5 - 15.5 % 02/01/2025 7:48 AM EDT [facility] 56 PLT 118(L) 140 - 400 K/uL 02/01/2025 7:48 AM EDT [facility] 56 MPV 13.2 6.6 - 11.1 fL 02/01/2025 7:48 AM EDT [facility] 56 Blood Venous blood specimen / Unknown Venipuncture / Unknown 02/01/2025 7:22 AM EDT 02/01/2025 7:22 AM EDT us Uziel Islas MD LAB BLOOD ORDERABLES Final Res ult [facility] 200 [place] [address] documented in this encounter Visit Diagnoses Diagnosis Hyperlipidemia with [...] (severe) documented in this encounter Care Teams Station Air Traffic Control Specialist Relationship Specialty Start Date End Date Gaby Islas MD 200 [place] [address] PCP - General Internal Medicine 12/27/20 documented as of this encounter
--- OUTSIDE RECORDS SUMMARY | 2025-02-11 18:26 | External Medical Summary | Summary of Care ---
Author Name Unknown Organization [facility] Address [address] [place] [address] Phone [phone] Care Team Providers Care Boat Hop Name Role Phone Gaby Islas MD Primary Care Provider [phone] Reason for Visit * Reason Onset Date Comments Medication Refill 12/31/2024 Encounter Details Date Type Department Care Team (Late st Contact Info) Description 12/31/2024 Refill General Internal Medicine [facility] [address] [place] [address] Rosamaria Reddy MD [address] [place] [address] Type 2 DM with CKD stage 4 and hypertension ([facility]); Type 2 diabetes mellitus with diabetic nephropathy, without long-term current use of insulin ([facility]); Lumbar radiculopathy Allergies Active Allergy Reactions Criticality Noted Date Comments Lisinopril Anaphylaxis High 03/17/2017 when taken in conjunction w/ Metformin documented as of this encounter (statuses as of 01/03/2025) Medications Cholecalciferol 25 MCG (1000 UT) Oral Capsule Take by mouth daily. Active Cyanocobalamin 500 MCG Oral Tablet Take 1 Tablet by mouth in the morning. Active Polysaccharide Iron Complex 150 MG Oral Capsule 2 times a day. Active Pen [place] 32G X 5 MMIndications:Type 2 diabetes mellitus [...] Hba1c 7 -8.6 IDDM 400 Each 3 1 Active [...] nephropathy, without long-term current use of insulin (HCC),Lumbar radiculopathy TAKE 1 CAPSULE BY MOUTH IN THE MORNING AND 2 AT NIGHT 180 Capsule 5 Active documented as of this encounter (statuses as of 01/03/2025) Active Problems Problem Noted Date Diagnosed Date Type 2 diabetes mellitus wit h hemoglobin A1c goal of less than 8.0% 01/25/2021 Type 2 diabetes mellitus wit h stage 4 chronic kidney disease, with long-term current use of insulin 12/27/2020 Cardiomyopathy 12/27/2020 Hyperlipidemia with target LDL less than 100 01/2021 HTN, goal below 140/90 12/27/2020 documented as of this encounter (statuses as of 01/03/2025) Resolved Problems Problem Noted Date Diagnosed Date Resolved Date Cortical senile cataract 02/14/2012 documented as of this encounter (statuses as of 01/03/2025) Immunizations Name Administration Dates Next Due COVID-19 [...] encounter Miscellaneous Notes * Telephone Encounter - Jorge Green DO - 01/02/2025 1:43 PM EDT Refused Prescriptions: Disp Refills Gabapentin 300 MG Oral Capsule (Neurontin) 180 Ca*3 Sig: TAKE 1 CAPSULE BY MOUTH IN THE MORNING AND 2 AT NIGHT Refused By: JORGE GREEN Reason for Refusal: Duplicate Request * Telephone Encounter - Nicole Polanco LPN - 01/02/2025 1:42 PM EDT Pending Prescriptions: Disp Refills Gabapentin 300 MG Oral Capsule (Neurontin) 180 Ca*3 Sig: TAKE 1 CAPSULE BY MOUTH IN THE MORNING AND 2 AT NIGHT * Telephone Encounter - Nicole Polanco LPN - 01/02/2025 1:41 PM EDT Please refuse this was filled yesterday * Telephone Encounter - Michele Hanley - 01/01/2025 4:20 AM EDTPending Prescriptions: Disp Refills Gabapentin 300 MG Oral Capsule (Neurontin) 180 Ca*3 Sig: TAKE 1CAPSULE BY MOUTH IN THE MORNING AND 2 AT NIGHT documented in this encounter Plan of Treatment Upcoming Encounters Date Type Department Care Team (Late st Contact Info) Description 01/24/2025 4:00 PM EDT Office Visit Nephrology, [facility] [address] [place] [address] Uziel Islas MD [address] [place] [address] 03/09/2025 5:00 PM EDT Office Visit General Internal Medicine [facility] [address] [place] [address] Gaby Islas MD [address] [place] [address] 03/22/2025 9:30 AM EDT Office Visit Cardiology, [facility] [address] [facility] [place] [address] Anand Llamas PA-C [address] [employer] [place] [address] 09/19/2025 4:00 PM EST Cardiac Studies Cardiac Studies, [facility] [address] [employer] [address] [place] [id number] Scheduled Procedures Name Priority Associated Diagnoses Date/Ti me COLONOSCOPY FLEXIBLE PROXIMAL DIAGNOSTIC Recall History of colon polyps Health Maintenance Due Date Last Done Comments Zoster Vaccines (1 of 2) 1998 Adult Wellness Visit 2014 Diabetic Eye Exam 05/12/2023 05/12/2022, , 03/05/2012, Additional history exists COVID-19 Vaccine ( season) 2024 10/21/2021, 12/29/2020, 12/01/2020 Influenza Vaccine (FLU shot) (#1) 2024 Diabetic Foot Exam 08/10/2024 08/10/2023, 0 12/27/2021, 01/11/2021 Depression Screening 02/08/2025 02/09/2024 GFR 03/07/2025 09/07/2024, 04/27, 06/03/2023, Additional history exists HbA1c 03/07/2025 09/07/2024, 04/27, 12/23/2023, Additional history exists DTap/Tdap Vaccines (3 - Td or Tdap) 03/10/2025 03/10/2015, 02/15/2015 Nephrology Referral 05/23/2025 05/23/2024 Hgb 05/24/2025 05/24/2024, 11/27, 07/14/2022, Additional history exists PTH 05/24/2025 05/24/2024, 11/27, 06/26/2020 Phosphate 05/24/2025 05/24/2024, 08/0 06/2023, 12/17/2022, Additional history exists Albumin/Creatinine Ratio 09/07/2025 024, 08/23/2024, 02/25/2023, Additional history exists Colonoscopy 01/08/2026 01/08/2023 Pneumococcal Vaccine: 50+ Years Completed 02/15/2015, 02/27/2014, [...] this encounter Medical Devices Implanted Type Area Senior Sharepoint Developer Device Identifier Shelf Expiration Date Model / Serial / Lot Lens 15.0 Sa60at - [id number] Implanted:Qty: 1 on 02/28/2012 at OR [facility] Right: Eye [employer] 06/26/2016 [id number] / [id number] / documented as of this encounter Visit Diagnoses Diagnosis Type 2 DM with CKD stage 4 and hypertension (HCC) Type 2 diabetes mellitus with diabetic nephropathy, without long-term current use of insulin (HCC) Lumbar radiculopathy Thoracic or lumbosacral neuritis or radiculitis, unspecified documented in this encounter Care Teams Boat Hop Relationship Specialty Start Date End Date Gaby Islas MD [address] [place] [address] PCP - General Internal Medicine 12/27/20 documented as of this encounter
--- OUTSIDE RECORDS SUMMARY | 2025-02-11 18:26 | External Medical Summary | Summary of Care ---
Author Name Unknown Organization [facility] Address [address] [place] [address] Phone [phone] Care Team Providers Care Valve Inserter Name Role Phone Terrence Islas MD Primary Care Provider [phone] Reason for Visit * Reason Comments eRx-Medication Refill Encounter Details Date Type Department Care Team (Late st Contact Info) Description 01/30/2025 Refill General Internal Medicine [facility] [address] [place] [address] Terrence Islas MD [address] [place] [address] HTN, goal below 140/90 Allergies Active Allergy Reactions Criticality Noted Date Comments Lisinopril Anaphylaxis High 03/17/2017 when taken in conjunction w/ Metformin documented as of this encounter (statuses as of 01/30/2025) Medications Cholecalciferol 25 MCG (1000 UT) Oral Capsule Take by mouth daily. Active Cyanocobalamin 500 MCG Oral Tablet Take 1 Tablet by mouth in the morning. Active Polysaccharide Iron Complex 150 MG Oral Capsule 2 times a day. Active Pen [place] 32G X 5 MMIndications:Typ e 2 diabetes [...] hemoglobin A1c goal of less than 7.0% ([facility]) Check blood sugar 4 times daily. Hba1c [...] disease, with long-term current use of insulin ([facility]),Type 2 diabetes mellitus with hemoglobin A1c goal of less than 7.0% ([facility]) Inject under the skin 15 Units daily with breakfast 60 mL 3 02/08/20 23 Active Trulicity 3 MG/0.5ML Subcutaneous Solution Pen-injector (Dulaglutide)Svetlana cations:Type 2 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 disease, with long-term current use of insulin ([facility]) INJECT 3 MG (0.5 ML) UNDER THE SKIN ONCE A WEEK 6 mL 3 10/07/20 23 Active Magnesium 400 MG Oral Tablet Take 1 Tablet by mouth in the morning. Active Isosorbide Mononitrate ER 30 MG Oral Tablet Extended Release 24 Hour (Imdur) Take 1 Tablet by mouth in the morning. 31 Tablet 5 10/14/20 23 Active Metoprolol Succinate ER 50 MG Oral Tablet Extended Release 24 Hour (toPROL XL)Indications:Ca rdiomyopathy, unspecified type (HCC),HTN, goal below 140/90 Take 1 tablet by mouth twice daily 180 Tablet 3 05/23/20 24 Active Furosemide 80 MG Oral Tablet (Lasix)Indication s:Type 2 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 disease, with long-term current use of insulin ([facility]),HTN, goal below 140/90 Take 1 tablet by [...] MORNING 90 Tablet 1 11/14/19 25 Active Gabapentin 300 MG Oral Capsule (Neurontin)Indica tions:Type 2 DM with CKD stage 4 and hypertension ([facility]),Type 2 diabetes mellitus with diabetic nephropathy, without long-term current use of insulin ([facility]),Lumbar radiculopathy TAKE 1 CAPSULE BY MOUTH IN THE MORNING AND 2 AT NIGHT 180 Capsule 01/02/20 25 Active Insulin Lispro (1 Unit Dial) 100 UNIT/ML Subcutaneous Solution Pen-injector (Admelog) Inject 20 Units under the skin daily before breakfast. 12/11/19 25 Active hydrALAZINE HCl 50 MG Oral Tablet (Apresoline)Indic ations:HTN, goal below 140/90 Take 1 tablet by mouth twice daily 180 Tablet 3 01/31/20 25 Active hydrALAZINE HCl 50 MG Oral Tablet (Apresoline)Indic ations:HTN, goal below 140/90 Take 1 tablet by mouth twice daily 180 Tablet 3 02/22/20 24 025 Discontinued documented as of this encounter (statuses as of 01/30/2025) Active Problems Problem Noted Date Diagnosed Date Type 2 diabetes mellitus wit h hemoglobin A1c goal of less than 8.0% 01/25/2021 Type 2 diabetes mellitus wit h stage 4 chronic kidney disease, with long-term current use of insulin 12/27/2020 Cardiomyopathy 12/27/2020 Hyperlipidemia with target LDL less than 100 01/2021 HTN, goal below 140/90 12/27/2020 documented as of this encounter (statuses as of 01/30/2025) Resolved Problems Problem Noted Date Diagnosed Date Resolved Date Cortical senile cataract 02/14/2012 documented as of this encounter (statuses as of 01/30/2025) Immunizations Name Administration Dates Next Due COVID-19 [...] encounter Miscellaneous Notes * Telephone Encounter - Terrence Islas MD - 01/30/2025 3:01 PM EDTSigned Prescriptions: Disp Refills hydrALAZINE HCl 50 MG Oral Tablet (Apresol*180 Ta*3 Sig: Take 1 tablet by mouth twice daily Authorizing Provider: TERRENCE ISLAS * Telephone Encounter - Nicole Polanco LPN - 01/30/2025 2:17 PM EDT Pending Prescriptions: Disp Refills hydrALAZINE HCl 50 MG Oral Tablet 180 Ta*0 Sig: Take 1 tablet by mouth twice daily * Telephone Encounter - Nicole Polanco LPN - 01/30/2025 2:17 PM EDT Did you pend patient's preferred pharmacy and medication before forwarding?yes Pharmacy: [facility] [address] [place] [address] [phone] [facility] Pending Prescriptions: Disp Refills hydrALAZINE HCl 50 MG Oral Tablet (Apreso*180 Ta*0 Sig: Take 1 tablet by mouth twice daily Last Visit: 09/08/2024 (in office), Visit date not found (telemedicine) Next Visit: 03/09/2025 If no future appointments scheduled, and last appointment is greater than a year ago, please schedule patient for a follow-up appointment Last date the medication was ordered: 02-22-24 Is this request for a controlled substance?No Urine Drug Screen:No results found for this or any previous visit. Patient Phone Numbers Labs: Lab Results Component Value Date/Time CREAT 2.3 (H) 09/07/2024 07:09 AM CREAT 3.81 (A) 11/21/2020 12:00 AM CREAT 2.04 (H) 09/07/2019 07:51 AM POTASSIUM 3.6 09/07/2024 07:09 AM POTASSIUM 4.0 11/21/2020 12:00 AM POTASSIUM 3.6 09/07/2019 07:51 AM TSH 1.22 02/25/2023 08:31 AM LDL 42 09/07/2024 07:09 AM LDL 18 02/25/2023 08:31 AM LDL 42 12/13/2016 04:17 AM LDLCALC 20 07/13/2023 12:00 AM LDLCALC 21.4 09/07/2019 07:51 AM ALT <5 (L) 09/07/2024 07:09 AM HGBA1C 7.6 (H) 09/07/2024 07:09 AM HGBA1C 7.5 (A) 12/23/2023 12:00 AM HGBA1C 8.4 (H) 09/07/2019 07:51 AM * Telephone Encounter - Michele Hanley - 01/30/2025 2:04 PM EDTPending Prescriptions: Disp Refills hydrALAZINE HCl 50 MG Oral Tablet 180 Ta*0 Sig: Take 1 tablet by mouth twice daily documented in this encounter Plan of Treatment Upcoming Encounters Date Type Department Care Team (Late st Contact Info) Description 03/09/2025 5:00 PM EDT Office Visit General Internal Medicine [facility] [address] [place] [address] Terrence Islas MD [address] [place] [address] 03/22/2025 9:30 AM EDT Office Visit Cardiology, [facility] [address] [place] [phone] Anand Llamas PA-C [address] [place] [address] 09/06/2025 5:00 PM EST Office Visit Nephrology, [facility] [address] [facility] [place] [address] Uziel Islas MD [address] [facility] [place] [address] 09/19/2025 4:00 PM EST Cardiac Studies Cardiac Studies, [facility] [address] [place] [phone] Scheduled Procedures Name Priority Associated Diagnoses Date/Ti [...] this encounter Medical Devices Implanted Type Area Electrical Hardware Engineer Device Identifier Shelf Expiration Date Model / Serial / Lot Lens 15.0 Sa60at - [id number] Implanted:Qty: 1 on 02/28/2012 at [place] [facility] Right: Eye [employer] 06/26/2016 SA60AT / [id number] / documented as of this encounter Visit Diagnoses Diagnosis HTN, goal below 140/90 Unspecified essential hypertension documented in this encounter Care Teams Valve Inserter Relationship Specialty Start Date End Date Terrence Islas MD 200 [place] [address] PCP - General Internal Medicine 12/27/20 documented as of this encounter
--- OUTSIDE RECORDS SUMMARY | 2025-02-11 18:26 | External Medical Summary ---
Author Name Unknown Address Unknown Organization [id number]:[facility] [address] [place] [address] Laboratory Report Ordering Provider Test Date Status VIJI OCAMPO 02/01/2025 07:22:13 Final Observation Date Value Abnormality Reference (Units ) Status HbA1C 02/01/2025 07:22:13 8.0 Above high normal 4. 0-5.6 (%) Final The use of HbA1c to monitor glycemic status is based on normal hemoglobin and HbA composition. This test should not be used in patients with abnormal hemoglobin that affects the half life of the red blood cell or the in vivo glycation rates. Glucose, estimated average 02/01/2025 07:22:13 183 Above high normal <126 (mg/dL) Earnest logan Performing Location [facility] [address] [place] [address]
--- OUTSIDE RECORDS SUMMARY | 2025-02-11 18:26 | External Medical Summary | Summary of Care ---
Author Name Unknown Organization [facility] Address [address] [place] [address] Phone [phone] Care Team Providers Care Awning Hanger Helper Name Role Phone Gaby Islas MD Primary Care Provider [phone] Reason for Visit * Reason Comments Outpatient Testing Encounter Details Date Type Department Care Team (Late st Contact Info) Description 02/01/2025 7:20 AM EDT Laboratory Laboratory [facility] [address] [place] [id number] [place], [facility] [address] [place] [address] Hyperlipidemia with target LDL less than 100; HTN, goal below 140/90; Type 2 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 disease, with long-term current use of insulin ([facility]); Type 2 diabetes mellitus with hemoglobin A1c goal of less than 8.0% ([facility]); Kidney disease, chronic, stage IV (GFR 15-29 ml/min) ([facility]) Allergies Active Allergy Reactions Criticality [...] Capsule 2 times a day. Active Pen [place] 32G X 5 MMIndications:Type 2 diabetes mellitus [...] disease, with long-term current use of insulin ([facility]) INJECT 3 MG (0.5 ML) [...] 24 Hour (toPROL XL)Indications:Car diomyopathy, unspecified type ([facility]),HTN, goal below 140/90 Take 1 tablet by mouth twice daily 180 Tablet 3 4 Active Furosemide 80 MG Oral Tablet (Lasix)Indications :Type 2 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 disease, with long-term current use of insulin ([facility]),HTN, goal below 140/90 Take 1 [...] DM with CKD stage 4 and hypertension ([facility]),Type 2 diabetes mellitus with diabetic nephropathy, without long-term current use of insulin ([facility]),Lumbar radiculopathy TAKE 1 CAPSULE BY [...] PM EDT Office Visit General Internal Medicine [facility] [address] [facility] [place] [address] Gaby Islas MD [address] [facility] [place] [address] 03/22/2025 9:30 AM EDT Office Visit Cardiology, [facility] [address] [place] [phone] Anand Llamas PA-C [address] [place] [address] 09/06/2025 5:00 PM EST Office Visit Nephrology, [facility] [address] [place] [address] Uziel Islas MD 200 [place] [address] 09/19/2025 4:00 PM EST Cardiac Studies Cardiac Studies, [facility] [address] [place] [phone] Pending Results Name Type Priority Associated Diagnoses Date /Time COMPREHENSIVE METABOLIC PANEL Lab Routine Hyperlipidemia with target LDL less than 100 HTN, goal below 140/90 02/01/2025 7:22 AM EDT HEMOGLOBIN A1C Lab Routine Type 2 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 disease, with long-term current use of insulin ([facility]) Type 2 diabetes mellitus with hemoglobin A1c goal of less than 8.0% ([facility]) 02/01/2025 7:22 AM EDT LIPID PANEL WITH DIRECT LDL IF TG IS HIGH Lab Routine Hyperlipidemia with target LDL less than 100 02/01/2025 7:22 AM EDT CBC WITH WBC DIFFERENTIAL Lab Routine Kidney disease, chronic, stage IV (GFR 15-29 ml/min) ([facility]) 02/01/2025 7:22 AM EDT PTH Lab Routine Kidney disease, chronic, stage IV (GFR 15-29 ml/min) ([facility]) 02/01/2025 7:22 AM EDT CBC Lab Routine Kidney disease, chronic, stage IV (GFR 15-29 ml/min) ([facility]) 02/01/2025 7:22 AM EDT DIFFERENTIAL, AUTOMATED Lab Routine Kidney disease, chronic, stage IV (GFR 15-29 ml/min) ([facility]) 02/01/2025 7:22 AM EDT PHOSPHORUS Lab Routine Kidney disease, chronic, stage IV (GFR 15-29 ml/min) ([facility]) 02/01/2025 7:22 AM EDT Scheduled [...] this encounter Medical Devices Implanted Type Area Software Applications Designer Device Identifier Shelf Expiration Date Model / Serial / Lot Lens 15.0 Sa60at - [id number] Implanted:Qty: 1 on 02/28/2012 at OR [facility] Right: Eye [employer] 06/26/2016 SA60AT / [id number] / documented as of this encounter [...] (severe) documented in this encounter Care Teams Awning Hanger Helper Relationship Specialty Start Date End Date Gaby Islas MD [address] [place] [address] PCP - General Internal Medicine 12/27/20 documented as of this encounter
--- OUTSIDE RECORDS SUMMARY | 2025-02-11 18:26 | External Medical Summary ---
Author Name Unknown Address Unknown Organization [id number]:[facility] [place] [address] Laboratory Report Ordering Provider Test Date Status VIJI OCAMPO 02/01/2025 07:22:13 Final Observation Date Value Abnormality Reference (Units ) Status BUN 02/01/2025 07:22:13 28 Above high normal 6-20 (mg/dL) Final Creatinine 02/01/2025 07:22:13 2.1 Above high normal 0.6-1.2 (mg/dL) Final Glomerular filtration rate/1.73 sq M.predicted [Volume Rate/Area] in Serum, Plasma or Blood by Creatinine-based formula (CKD-EPI) 02/01/2025 07:22:13 32 Below low normal >=60 (mL/min) Final eGFR is calculated based on the CKD-EPI 2020 equation. Sodium 02/01/2025 07:22:13 143 135-146 (m mol/L) Final Potassium 02/01/2025 07:22:13 3.4 Below low normal 3.5 -5.1 (mmol/L) Final Cl 02/01/2025 07:22:13 102 98-107 (mm ol/L) Final CO2 02/01/2025 07:22:13 29 22-32 (mmo l/L) Final Anion gap 02/01/2025 07:22:13 12 7-15 (mmol /L) Final Glucose 02/01/2025 07:22:13 148 Above high normal 70 -120 (mg/dL) Final Albumin 02/01/2025 07:22:13 4.0 3.8-5.0 (g /dL) Final AST (Aspartate aminotransferase) 02/01/2025 07:22:13 19 10-50 (U/L) Fin al Alk Phos 02/01/2025 07:22:13 104 35-130 (U/ L) Final Bilirubin, Total 02/01/2025 07:22:13 1.1 <=1 .2 (mg/dL) Final Calcium 02/01/2025 07:22:13 9.3 8.4-10.2 ( mg/dL) Final Protein 02/01/2025 07:22:13 7.4 6.0-8.3 (g /dL) Final ALT (Alanine aminotransferase) 02/01/2025 07:22:13 16 10-50 (U/L) Earnest logan Performing Location [facility] [address] [place] [address]
--- OUTSIDE RECORDS SUMMARY | 2025-02-11 18:26 | External Medical Summary ---
Author Name Unknown Address Unknown Organization [id number][facility] [place] [id number] Laboratory Report Ordering Provider Test Date Status VIJI RIVERS 02/01/2025 07:22:13 Final Observation Date Value Abnormality Reference (Units ) Status Phosphate 02/01/2025 07:22:13 3.6 2.5-4.8 (m g/dL) Final Performing Location [facility] [address]
--- OUTSIDE RECORDS SUMMARY | 2025-02-11 18:27 | External Medical Summary | Summary of Care ---
Author Name Unknown Organization [facility] Address [address] [place] [address] Phone [phone] Care Team Providers Care Car Packer Name Role Phone Gaby Islas MD Primary Care Provider [phone] Reason for Visit * Reason Comments eRx-Medication Refill Encounter Details Date Type Department Care Team (Late st Contact Info) Description 12/31/2024 Refill General Internal Medicine [facility] [address] [facility] [place] [address] Gaby Islas MD [address] [place] [address] Type 2 DM with CKD stage 4 and hypertension ([facility]); Type 2 diabetes mellitus with diabetic nephropathy, without long-term current use of insulin ([facility]); Lumbar radiculopathy Allergies Active Allergy Reactions Criticality Noted Date Comments Lisinopril Anaphylaxis High 03/17/2017 when taken in conjunction w/ Metformin documented as of this encounter (statuses as of 01/01/2025) Medications Cholecalciferol 25 MCG (1000 UT) Oral Capsule Take by mouth daily. Active Cyanocobalamin 500 MCG Oral Tablet Take 1 Tablet by mouth in the morning. Active Polysaccharide Iron Complex 150 MG Oral Capsule 2 times a day. Active Pen [place] 32G X 5 MMIndications:Typ e 2 diabetes mellitus with hemoglobin A1c goal of less than 7.0% ([facility]) Use as directed. To use with Lantus solostar 35 Each 5 01/01/20 21 Active BD Eclipse Needle 25G X 5/8" (Needle (Disp))Indication s:Type 2 diabetes mellitus with hemoglobin A1c goal of less than 7.0% ([facility]) As directed to use with lispro 100 Each 01/26/20 Active FreeStyle Test In Vitro Strip (Glucose Blood) Use Test Strips 4-times a day as directed. Hba1c 05/14/21 -8.6 400 Strip 05/28/20 21 Active FreeStyle LancetsIndication s:Type 2 diabetes mellitus with hemoglobin A1c goal of less than 7.0% ([facility]) Check blood sugar 4 times daily. Hba1c 05/14/21 -8.6 IDDM 400 Each 3 05/28/20 Active Insulin Syringe-Needle U-100 30G X 1/2" 0.5 MLIndications:Typ e 2 diabetes mellitus with hemoglobin A1c goal of less than 7.0% ([facility]) Use as directed to use with [...] current use of insulin ([facility]),Type 2 diabetes mellitus with hemoglobin A1c goal of less than 7.0% ([facility]) Inject under the skin 15 Units daily with breakfast 60 mL 02/08/20 23 Active Trulicity 3 MG/0.5ML Subcutaneous Solution Pen-injector (Dulaglutide)Svetlana cations:Type 2 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 disease, with long-term current use of insulin ([facility]) INJECT 3 MG (0.5 ML) UNDER THE SKIN ONCE A WEEK 6 mL 3 10/07/20 23 Active Magnesium 400 MG Oral Tablet Take 1 Tablet by mouth in the morning. Active Isosorbide Mononitrate ER 30 MG Oral Tablet Extended Release 24 Hour (Imdur) Take 1 Tablet by mouth in the morning. 31 Tablet 5 10/14/20 23 Active hydrALAZINE HCl 50 MG Oral Tablet (Apresoline)Indic ations:HTN, goal below 140/90 Take 1 tablet by mouth twice daily 180 Tablet 3 02/22/20 24 Active Metoprolol Succinate ER 50 MG Oral Tablet Extended Release 24 Hour (toPROL XL)Indications:Ca rdiomyopathy, unspecified type ([facility]),HTN, goal below 140/90 Take 1 tablet by mouth twice daily 180 Tablet 3 05/23/20 24 Active Furosemide 80 MG Oral Tablet (Lasix)Indication s:Type 2 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 disease, with long-term current use of insulin ([facility]),HTN, goal below 140/90 Take 1 tablet [...] AT NIGHT 180 Capsule 01/02/20 25 Active Gabapentin 300 MG Oral Capsule (Neurontin)Indica tions:Type 2 DM with CKD stage 4 and hypertension ([facility]),Type 2 diabetes mellitus with diabetic nephropathy, without long-term current use of insulin ([facility]),Lumbar radiculopathy TAKE 1 CAPSULE BY MOUTH IN THE MORNING AND 2 AT NIGHT 180 Capsule 3 05/23/20 24 025 Discontinued documented as of this encounter (statuses as of 01/01/2025) Active Problems Problem Noted Date Diagnosed Date Type 2 diabetes mellitus wit h hemoglobin A1c goal of less than 8.0% 01/25/2021 Type 2 diabetes mellitus wit h stage 4 chronic kidney disease, with long-term current use of insulin 12/27/2020 Cardiomyopathy 12/27/2020 Hyperlipidemia with target LDL less than 100 01/2021 HTN, goal below 140/90 12/27/2020 documented as of this encounter (statuses as of 01/01/2025) Resolved Problems Problem Noted Date Diagnosed Date Resolved Date Cortical senile cataract 02/14/2012 documented as of this encounter (statuses as of 01/01/2025) Immunizations Name Administration Dates Next Due COVID-19 [...] encounter Miscellaneous Notes * Telephone Encounter - Manuel Bautista MD - 01/01/2025 11:53 AM EDT Signed Prescriptions: Disp Refills Gabapentin 300 MG Oral Capsule (Neurontin) 180 Ca*0 Sig: TAKE 1 CAPSULE BY MOUTH IN THE MORNING AND 2 AT NIGHT Authorizing Provider: MANUEL BAUTISTA * Telephone Encounter - Tawanna Parsons CMA - 12/31/2024 2:22 PM ESTPending Prescriptions: Disp Refills Gabapentin 300 MG Oral Capsule 180 Ca*0 Sig: TAKE 1 CAPSULE BY MOUTH IN THE MORNING AND 2 AT NIGHT * Telephone Encounter - Tawanna Parsons CMA - 12/31/2024 2:22 PM EST Did you pend patient's preferred pharmacy and medication before forwarding?yes Pharmacy: [facility] [address] [place] [address] [place] [address] Pending Prescriptions: Disp Refills Gabapentin 300 MG Oral Capsule (Neurontin*180 Ca*0 Sig: TAKE 1 CAPSULE BY MOUTH IN THE MORNING AND 2 AT NIGHT Last Visit: 09/08/2024 (in office), Visit date not found (telemedicine) Next Visit: 03/09/2025 If no future appointments scheduled, and last appointment is greater than a year ago, please schedule patient for a follow-up appointment Last date the medication was ordered: 05/23/24 Is this request for a controlled substance?No [...] * Telephone Encounter - Michele Hanley - 12/31/2024 2:19 PM ESTPending Prescriptions: Disp Refills Gabapentin 300 MG Oral Capsule 180 Ca*0 Sig: TAKE 1 CAPSULE BY MOUTH IN THE MORNING AND 2 AT NIGHT documented in this encounter Plan of Treatment Upcoming Encounters Date Type Department Care Team (Late st Contact Info) Description 01/24/2025 4:00 PM EDT Office Visit Nephrology, [facility] [address] [facility] [place] [address] Uziel Islas MD [address] [facility] [place] [address] 03/09/2025 5:00 PM EDT Office Visit General Internal Medicine [facility] [address] [facility] [place] [address] Gaby Islas MD [address] [facility] [place] [address] 03/22/2025 9:30 AM EDT Office [facility] [address] [facility] [address] Anand Llamas [place] [address] [facility] [facility] [address] 09/19/2025 4:00 PM EST Cardiac Studies Cardiac Studies, [facility] [address] [place] [address] Scheduled Procedures Name Priority Associated Diagnoses Date/Ti [...] Nephrology Referral 05/23/2025 05/23/2024 Hgb 05/24/2025 05/24/2024, 2 11/2022, 07/14/2022, Additional history exists PTH 05/24/2025 05/24/2024, [...] this encounter Medical Devices Implanted Type Area Lithographer Helper Device Identifier Shelf Expiration Date Model / Serial / Lot Lens 15.0 Sa60at - [id number] Implanted:Qty: 1 on 02/28/2012 at OR [facility] Right: Eye [employer] 06/26/2016 TENA / [id number] / documented as of this encounter Visit Diagnoses Diagnosis Type 2 DM with CKD stage 4 and hypertension ([facility]) Type 2 diabetes mellitus with diabetic nephropathy, without long-term current use of insulin ([facility]) Lumbar radiculopathy Thoracic or lumbosacral neuritis or radiculitis, unspecified documented in this encounter Care Teams Car Packer Relationship Specialty Start Date End Date Gaby Islas MD [address] [facility] [place] [address] PCP - General Internal Medicine 12/27/20 documented as of this encounter
--- NOTE | 2025-02-11 18:29 | Electrocardiogram Report ---
Test Reason : Blood Pressure : */* mmHG Vent. Rate : 72 BPM Atrial Rate : 72 BPM P-R Int : 278 ms QRS Dur : 198 ms QT Int : 494 ms P-R-T Axes : 69 -48 111 degrees QTcB Int : 540 ms Sinus rhythm with 1st degree A-V block Left axis deviation Left bundle branch block Abnormal ECG When compared with ECG of 18-May-2022 20:16, No significant change was found Confirmed by Sameer Hartley ([id number]) on 02/11/2025 6:28:47 PM Referred By: REFERRED SELF Confirmed By: Sameer Hartley
[2025-02-11 19:04] LABS: Appearance Urine Clear (Clear); Bacteria Urine Automated None Seen (None Seen); Bilirubin Urine Negative (Negative); Blood Urine Negative (Negative); Cast Urine Automated 0-2 /lpf (0-2); Color Urine Yellow; Epithelial Cell Urine Auto 0-2 /hpf (0-2); Glucose Urine UA 1+ (Negative); Ketones Urine Negative (Negative); Leukocyte Esterase Urine Negative (Negative); Nitrite Urine Negative (Negative); Protein Urine Trace (Negative); RBC Urine Automated 0-2 /hpf (0-2); Specific Gravity Urine 1.008 (1.000-1.030); Urobilinogen Urine Negative (Negative); WBC Urine Automated 0-5 /hpf (0-5)
[2025-02-11] MEDS: CHOLECALCIFEROL 25 MCG (1000 UNITS) TAB PO SCH (20:09)
[2025-02-11] MEDS: ATORVASTATIN 40 MG TAB PO SCH (20:09)
[2025-02-11] MEDS: GABAPENTIN 300 MG CAP PO SCH (20:10)
[2025-02-11] MEDS: HEPARIN SOD 5,000 UNIT/0.5 ML VIAL SQ SCH (20:11)
[2025-02-11] MEDS: METOPROLOL SUCC 50MG EXT REL TAB PO SCH (20:12)
[2025-02-11] MEDS: LANTUS PER UNIT CHARGE SQ SCH (20:12)
[2025-02-11] MEDS: CHOLESTYRAMINE LIGHT 4 GM PKT PO SCH (22:41)
[2025-02-12 07:38] LABS: Estimated Average Glucose 186 mg/dl; Hematocrit (blood only) 43.1 % (42.0-52.0); Hemoglobin A1C 8.1 % (4.5-5.6); Mean Corpuscular Hemoglobin 31.4 pg (25.0-34.0); Mean Corpuscular Hgb Conc 34.8 g/dL (32.0-36.0); Mean Corpuscular Volume 90.4 fL (80.0-100.0); Mean Platelet Volume 12.3 fL (9.4-12.4); Platelet Count 97 K/uL (130-400); RDW Coefficient of Variation 12.9 % (11.5-14.5); RDW Standard Deviation 42.7 fL (36.4-46.3); Red Blood Count 4.77 M/uL (4.70-6.10); White Blood Count 7.97 K/ul (4.8-10.8)
[2025-02-12 07:48] LABS: BUN Creatinine Ratio 17.6 (10-20); Calcium 8.7 mg/dl (8.6-10.3); Creatinine Clr Calc Pharmacy 20.4 ml/min; Magnesium 2.3 mg/dl (1.7-2.4); Phosphorus 3.2 mg/dl (2.5-4.9); Potassium 2.9 mmol/L (3.5-5.1)
[2025-02-12] MEDS: POTASSIUM CHLORIDE CRTAB 20 MEQ TABCR PO ONE (09:02)
[2025-02-12] MEDS: CALCIUM CARBONATE 500 MG CHEWABLE TAB PO SCH (09:02)
[2025-02-12] MEDS: GABAPENTIN 300 MG CAP PO SCH (09:02)
[2025-02-12] MEDS: AMITRIPTYLINE HCL 10 MG TAB PO SCH (09:02)
[2025-02-12] MEDS: allopurinoL 100 MG TAB PO SCH (09:02)
[2025-02-12] MEDS: FERROUS SULFATE 325 MG TAB PO SCH (09:02)
[2025-02-12] MEDS: ISOSORBIDE MONO EXTENDED REL 30 MG TABCR PO SCH (09:02)
[2025-02-12] MEDS: CYANOCOBALAMIN (B-12) 500 MCG TABLET PO SCH (09:02)
[2025-02-12] MEDS: SODIUM CHLORIDE 0.9% 1,000 ML IV ONE (09:05)
[2025-02-12] MEDS: POTASSIUM CHLORIDE / WTR 10 MEQ/100 ML PLCT IV SCH (09:06)
[2025-02-12] MEDS: LOPERAMIDE HCL 2 MG CAP PO PRN (10:24)
--- NOTE | 2025-02-12 14:02 | Hospitalist Progress Note ---
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 Patient denies abdominal pain. Diarrhea Likely viral gastroenteritis Hypokalemia likely due to GI losses --CT ABD: Cholelithiasis without evidence of acute cholecystitis. Mild esophageal dilatation, which could be due to dysmotility or reflux. Mildly enlarged prostate. Inguinal hernias containing only fat --Stool PCR/ C.diff: Negative Leukocytosis resolved Continue IV fluids Continue cholestyramine, Imodium as needed If persistent, will consider GI evaluation Hypokalemia Likely due to GI losses as above Monitor and replete electrolytes as needed DAVID on CKD stage IV: Baseline Cr around 2.2-2.5 Cr 4.0 >3.5 today Held home diuretics Continue gentle IV fluids Bladder scan as needed to monitor for any retention Mild chronic troponin elevation In setting of renal failure Denies any chest pain, dizziness Other chronic medical conditions: Cardiomyopathy: Continue with home cardiac medications as able. Resume home diuretics as able Hypertension: Resume home antihypertensives as able Hyperlipidemia: Continue atorvastatin T2DM: Sliding scale insulin while in hospital. Monitor blood glucose levels Anemia: continue with supplement. Diabetic neuropathy: Continue gabapentin. DVT Px: Heparin SQ Code Status Full code Admission and Anticipated Discharge Date Admission Date: February 11, 2025 Subjective Patient is seen and examined at bedside Still has multiple episodes of loose bowel movements today Denies any nausea, vomiting, abdominal pain, blood in stool Also denies any dyspnea, chest pain, dizziness Review of Systems Review of Systems: All systems reviewed & are unremarkable except as noted in Subjective Physical Exam Physical Exam: Physical Exam: Vitals signs as noted above General Appearance:Obese, no apparent distress Head: normocephalic, Atraumatic Eyes: normal inspection, EOMI Neck: supple, Trachea midline Respiratory/Chest: Normal breath sounds, CTA, No accessory muscle use Cardiovascular: S1, S2, No murmur Abdomen/GI:Soft, Non tender, Bowel sounds present Extremities/Musculoskeletal:normal inspection, no edema Neurologic/Psych:AAOX3, grossly no focal neurological deficits Skin: normal color, warm Results & Data Results & Data Vital Signs (Past 12 Hours) Vital Signs Temp Pulse Resp BP BP Pulse Ox O2 Del Method 02/12/25 11:59 36.7 C 69 16 113/69 95 Room Air 02/12/25 08:37 36.6 C 74 18 116/65 96 Room Air 02/12/25 03:36 36.5 C 67 18 106/57 L 93 Room Air Laboratory Results Short CBC 02/12/25 Range/Units 07:07 WBC 7.97 (4.8-10.8) K/ul Hgb 15.0 (14.0-18.0) g/dl Hct 43.1 (42.0-52.0) % Plt Count 97 L (130-400) K/uL BMP 02/11/25 02/12/25 17:05 07:07 Sodium 136 135 L Potassium 3.0 L 2.9 L Chloride 100 104 Carbon Dioxide 24 19 L BUN 60 H 63 H Creatinine 3.71 H 3.58 H Glucose 136 H 128 H Calcium 9.1 8.7 Urine 02/11/25 Range/Units 18:51 Urine Color Yellow Urine Appearance Clear (Clear) Urine pH 5.0 (4.5-7.5) Ur Specific [place] 1.008 (1.000-1.030) Urine Protein Trace H (Negative) Urine Glucose (UA) 1+ H (Negative)
[2025-02-12 15:35] LABS: BUN Creatinine Ratio 18.6 (10-20); Calcium 8.9 mg/dl (8.6-10.3); Creatinine Clr Calc Pharmacy 21.2 ml/min; Potassium 3.5 mmol/L (3.5-5.1)
[2025-02-12] MEDS: POTASSIUM CHLORIDE 10 MEQ TABCR PO ONE (17:24)
--- NOTE | 2025-02-12 21:23 | Communication Note ---
Date of Service: February 12, 2025 RN clarifying heparin subcu order for tonight with platelets of 97 in AM. Patient without overt bleeding as per RN. AP Thrombocytopenia Hold heparin for now
[2025-02-13 08:18] LABS: Hematocrit (blood only) 42.1 % (42.0-52.0); Hemoglobin 14.4 g/dl (14.0-18.0); Mean Corpuscular Hemoglobin 31.2 pg (25.0-34.0); Mean Corpuscular Hgb Conc 34.2 g/dL (32.0-36.0); Mean Corpuscular Volume 91.1 fL (80.0-100.0); Mean Platelet Volume 13.5 fL (9.4-12.4); Platelet Count 92 K/uL (130-400); RDW Coefficient of Variation 13.2 % (11.5-14.5); RDW Standard Deviation 43.9 fL (36.4-46.3); Red Blood Count 4.62 M/uL (4.70-6.10); White Blood Count 7.42 K/ul (4.8-10.8)
[2025-02-13 08:28] LABS: BUN Creatinine Ratio 19.3 (10-20); Calcium 8.6 mg/dl (8.6-10.3); Magnesium 2.3 mg/dl (1.7-2.4); Potassium 3.2 mmol/L (3.5-5.1)
[2025-02-13] MEDS: POTASSIUM CHLORIDE 10 MEQ TABCR PO ONE (09:34)
[2025-02-13] MEDS: LACTATED RINGER'S 1,000 ML IV ONE (09:34)
--- NOTE | 2025-02-13 16:08 | Hospitalist Progress Note ---
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 Patient denies abdominal pain. Diarrhea Likely viral gastroenteritis Hypokalemia likely due to GI losses --CT ABD: Cholelithiasis without evidence of acute cholecystitis. Mild esophageal dilatation, which could be due to dysmotility or reflux. Mildly enlarged prostate. Inguinal hernias containing only fat --Stool PCR/ C.diff: Negative Leukocytosis resolved Continue IV fluids Continue cholestyramine, Imodium as needed Diarrhea slowly improving Recommended to get colonoscopy as outpatient Hypokalemia Likely due to GI losses as above Monitor and replete electrolytes as needed Check magnesium levels DAVID on CKD stage IV: Baseline Cr around 2.2-2.5 Cr 4.0 >3.5>3.0 Held home diuretics Continue IV fluids Bladder scan as needed to monitor for any retention Renal function slowly improving Mild chronic troponin elevation In setting of renal failure Denies any chest pain, dizziness Acute on chronic thrombocytopenia No acute bleeding issues Monitor platelet count Other chronic medical conditions: Cardiomyopathy: Continue with home cardiac medications as able. Resume home diuretics as able Hypertension: Resume home antihypertensives as able Hyperlipidemia: Continue atorvastatin T2DM: Sliding scale insulin while in hospital. Monitor blood glucose levels Anemia: continue with supplement. Diabetic neuropathy: Continue gabapentin. DVT Px: Heparin SQ--held due to thrombocytopenia SCDs for now Code Status Full code Admission and Anticipated Discharge Date Admission Date: February 11, 2025 Subjective Patient is seen and examined at bedside Had 1 loose BM overnight and this morning No other new complaints today Denies any nausea, vomiting, abdominal pain, blood in stool, dyspnea, chest pain Diarrhea slowly improving Review of Systems Review of Systems: All systems reviewed & are unremarkable except as noted in Subjective Physical Exam Physical Exam: Physical Exam: Vitals signs as noted above General Appearance:Obese, no apparent distress Head: normocephalic, Atraumatic Eyes: normal inspection, EOMI Neck: supple, Trachea midline Respiratory/Chest: Normal breath sounds, CTA, No accessory muscle use Cardiovascular: S1, S2, No murmur Abdomen/GI:Soft, Non tender, Bowel sounds present Extremities/Musculoskeletal:normal inspection, no edema Neurologic/Psych:AAOX3, grossly no focal neurological deficits Skin: normal color, warm Results & Data Results & Data Vital Signs (Past 12 Hours) Vital Signs Temp Pulse Pulse Resp BP Pulse Ox O2 Del Method 02/13/25 15:29 36.5 C 63 20 128/69 97 Room Air 02/13/25 13:05 64 02/13/25 11:15 36.8 C 63 18 99/47 L 99 Room Air 02/13/25 07:40 Room Air 02/13/25 07:30 36.9 C 69 18 119/64 94 Room Air 02/13/25 05:46 64 Laboratory Results Short CBC 02/13/25 Range/Units 06:09 WBC 7.42 (4.8-10.8) K/ul Hgb 14.4 (14.0-18.0) g/dl Hct 42.1 (42.0-52.0) % Plt Count 92 L (130-400) K/uL BMP 02/13/25 06:09 Sodium 138 Potassium 3.2 L Chloride 110 H Carbon Dioxide 17 L BUN 59 H Creatinine 3.06 H D Glucose 98 Calcium 8.6
[2025-02-13] MEDS: POTASSIUM CHLORIDE 10 MEQ TABCR PO SCH (21:26)
[2025-02-14 06:20] LABS: BUN Creatinine Ratio 19.7 (10-20); Calcium 8.7 mg/dl (8.6-10.3); Creatinine Clr Calc Pharmacy 28.3 ml/min; Magnesium 2.2 mg/dl (1.7-2.4); Potassium 3.6 mmol/L (3.5-5.1)
[2025-02-14 06:34] LABS: Hematocrit (blood only) 40.2 % (42.0-52.0); Hemoglobin 13.9 g/dl (14.0-18.0); Mean Corpuscular Hemoglobin 31.6 pg (25.0-34.0); Mean Corpuscular Hgb Conc 34.6 g/dL (32.0-36.0); Mean Corpuscular Volume 91.4 fL (80.0-100.0); Mean Platelet Volume 12.5 fL (9.4-12.4); Platelet Count 91 K/uL (130-400); RDW Coefficient of Variation 12.9 % (11.5-14.5); RDW Standard Deviation 43.4 fL (36.4-46.3); White Blood Count 7.87 K/ul (4.8-10.8)
[2025-02-14 07:39] VITALS: RESP 20
[2025-02-14 11:21] VITALS: BP 128/68; PULSE 62; TEMP 97.7; O2SAT 94
--- NOTE | 2025-02-14 13:00 | Hospitalist Progress Note ---
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 Patient denies abdominal pain. Diarrhea Likely viral gastroenteritis Hypokalemia likely due to GI losses --CT ABD: Cholelithiasis without evidence of acute cholecystitis. Mild esophageal dilatation, which could be due to dysmotility or reflux. Mildly enlarged prostate. Inguinal hernias containing only fat --Stool PCR/ C.diff: Negative Leukocytosis resolved Received IV fluids Continue cholestyramine, Imodium as needed Recommended to get colonoscopy as outpatient Diarrhea resolved Decrease cholestyramine as able Plan to discharge home today Hypokalemia Likely due to GI losses as above Monitor and replete electrolytes as needed Check magnesium levels DAVID on CKD stage IV: Baseline Cr around 2.2-2.5 Cr 4.0 >3.5>3.0>2.5 Held home diuretics Discontinue IV fluids Bladder scan as needed to monitor for any retention Renal function back to baseline Mild chronic troponin elevation In setting of renal failure Denies any chest pain, dizziness Acute on chronic thrombocytopenia No acute bleeding issues Monitor platelet count Other chronic medical conditions: Cardiomyopathy: Continue with home cardiac medications as able. Resume home diuretics as able Hypertension: Resume home antihypertensives as able Hyperlipidemia: Continue atorvastatin T2DM: Sliding scale insulin while in hospital. Monitor blood glucose levels Anemia: continue with supplement. Diabetic neuropathy: Continue gabapentin. DVT Px: Heparin SQ--held due to thrombocytopenia SCDs for now Code Status Full code Disposition Home Admission and Anticipated Discharge Date Admission Date: February 11, 2025 Subjective Patient is seen and examined at bedside States feeling a lot better today Diarrhea resolved Had regular bowel movement today Feels tired No other complaints Denies any nausea, vomiting, abdominal pain, blood in stool, dyspnea, chest pain Plan to be discharged home Review of Systems Review of Systems: All systems reviewed & are unremarkable except as noted in Subjective Physical Exam Physical Exam: Physical Exam: Vitals signs as noted above General Appearance:Obese, no apparent distress Head: normocephalic, Atraumatic Eyes: normal inspection, EOMI Neck: supple, Trachea midline Respiratory/Chest: Normal breath sounds, CTA, No accessory muscle use Cardiovascular: S1, S2, No murmur Abdomen/GI:Soft, Non tender, Bowel sounds present Extremities/Musculoskeletal:normal inspection, no edema Neurologic/Psych:AAOX3, grossly no focal neurological deficits Skin: normal color, warm Results & Data Results & Data Vital Signs (Past 12 Hours) Vital Signs Temp Pulse Pulse Resp BP Pulse Ox O2 Del Method 02/14/25 11:20 36.5 C 62 20 128/68 94 Room Air 02/14/25 07:38 36.6 C 60 20 101/65 97 Room Air 02/14/25 05:41 71 02/14/25 04:00 36.6 C 63 18 118/63 95 Room Air 02/14/25 01:05 68 Laboratory Results Short CBC 02/14/25 Range/Units 05:45 WBC 7.87 (4.8-10.8) K/ul Hgb 13.9 L (14.0-18.0) g/dl Hct 40.2 L (42.0-52.0) % Plt Count 91 L (130-400) K/uL BMP 02/14/25 05:45 Sodium 139 Potassium 3.6 Chloride 116 H Carbon Dioxide 17 L BUN 51 H Creatinine 2.59 H D Glucose 112 H Calcium 8.7
--- NOTE | 2025-02-14 13:09 | Discharge Summary ---
Date of Service February 14, 2025 Admission HPI Per Admitting Provider 74-year-old male with PMH of T2DM, obesity, HLD, HTN, diabetic nephropathy, CKD stage III, diabetic neuropathy, cardiomyopathy (presumed idiopathic) with improved LV function/normalization, BENY with daily CPAP use presents to the ED with complaint of diarrhea. Patient reports having diarrhea, nonbloody for 4 days, "almost throughout the day" for the first 2 days and then he took Imodium which has helped improve frequency of diarrhea since yesterday. Patient had 2 diarrheal bowel movements today, none after coming to the hospital so far. Patient also reports losing about 10 pounds since last 4 days LEPIDOPTERIST. Patient denies any fever/nausea/vomiting/belly pain/cramps/pain or burning while passing urine. Patient also denies sore throat/cough/chest pain/palpitation. Patient reports occasionally feeling dizzy and has been progressively feeling weak. Patient denies any sick family members, is doing well. Patient denies any travel or sick contact. Patient denies smoking/alcohol use/recreational drug use. Medications reviewed with the patient and his at bedside. Full code Plan of care discussed with them in detail, they voiced understanding. Admission Exam Per Admitting Provider GENERAL: Alert and oriented x3. NAD, on RA. Appears tired/fatigued/weak/frail/ill. HEENT: No pallor, no icterus. Pupils equal, round and reactive to light. Oral mucosa moist. NECK: No JVD, no neck masses. HEART: S1 and S2 heard. Regular rate and rhythm. No murmur, no gallop. RESPIRATORY SYSTEM: Normal AP diameter. No accessory muscle use. No wheezing, no crackles. ABDOMEN: Soft, bowel sounds present, nontender, no distention. CENTRAL NERVOUS SYSTEM: No facial droop. Speech is clear. Obeys simple commands. Moves extremities. EXTREMITIES: No edema, no erythema seen. Principal Diagnosis Diarrhea Acute kidney injury on stage IV CKD Hypokalemia Acute on chronic thrombocytopenia Discharge Data Allergies Allergy/AdvReac Type Severity Reaction Status Date / Time lisinopril Allergy Severe Anaphylaxis Verified 02/11/25 13:21 metformin Allergy Severe Anaphylaxis Unverified 02/11/25 13:21 Consultations 02/11/25 12:27 ED Decision to Admit Stat Procedures Performed Laboratory Results WBC 7.87 K/ul (4.8-10.8) 02/14/25 05:45 RBC 4.40 M/uL (4.70-6.10) L 02/14/25 05:45 Hgb 13.9 g/dl (14.0-18.0) L 02/14/25 05:45 Hct 40.2 % (42.0-52.0) L 02/14/25 05:45 MCV 91.4 fL (80.0-100.0) 02/14/25 05:45 MCH 31.6 pg (25.0-34.0) 02/14/25 05:45 MCHC 34.6 g/dL (32.0-36.0) 02/14/25 05:45 RDW Std Deviation 43.4 fL (36.4-46.3) 02/14/25 05:45 RDW Coeff of Valerie 12.9 % (11.5-14.5) 02/14/25 05:45 Plt Count 91 K/uL (130-400) L 02/14/25 05:45 MPV 12.5 fL (9.4-12.4) H 02/14/25 05:45 Immature Gran % (Auto) 0.5 % 02/11/25 11:25 Neut % (Auto) 74.4 % 02/11/25 11:25 Lymph % (Auto) 15.4 % 02/11/25 11:25 Schuyler % (Auto) 7.5 % 02/11/25 11:25 Eos % (Auto) 1.8 % 02/11/25 11:25 Baso % (Auto) 0.4 % 02/11/25 11:25 Neut # (Auto) 9.97 K/uL (1.40-6.50) H 02/11/25 11:25 Lymph # (Auto) 2.07 K/uL (1.20-3.40) 02/11/25 11:25 Schuyler # (Auto) 1.00 K/uL (0.11-0.59) H 02/11/25 11:25 Eos # (Auto) 0.24 K/uL (0.00-0.50) 02/11/25 11:25 Baso # (Auto) 0.06 K/uL (0.00-0.20) 02/11/25 11:25 Immature Gran # (Auto) 0.07 K/uL (0.01-0.20) 02/11/25 11:25 Sodium 139 mmol/L (136-145) 02/14/25 05:45 Potassium 3.6 mmol/L (3.5-5.1) 02/14/25 05:45 Chloride 116 mmol/L (98-107) H 02/14/25 05:45 Carbon Dioxide 17 mmol/L (21-32) L 02/14/25 05:45 Anion Gap 6 (3-11) 02/14/25 05:45 BUN 51 mg/dl (6-23) H 02/14/25 05:45 Creatinine 2.59 mg/dl (0.6-1.4) H D 02/14/25 05:45 Est Cr Clr Drug Dosing 28.3 ml/min 02/14/25 05:45 eGFR 24.90 02/14/25 05:45 BUN/Creatinine Ratio 19.7 (10-20) 02/14/25 05:45 Glucose 112 mg/dl (70-99(Fasting)) H 02/14/25 05:45 POC Glucose 130 mg/dl (70-99) H 02/14/25 07:49 Estimat Average Glucose 186 mg/dl 02/12/25 07:07 Hemoglobin A1c 8.1 % (4.5-5.6) H 02/12/25 07:07 Calcium 8.7 mg/dl (8.6-10.3) 02/14/25 05:45 Phosphorus 3.2 mg/dl (2.5-4.9) 02/12/25 07:07 Magnesium 2.2 mg/dl (1.7-2.4) 02/14/25 05:45 Total Bilirubin 1.9 mg/dl (0.2-1.0) H 02/11/25 11:25 AST 15 U/L (13-39) 02/11/25 11:25 ALT 12 U/L (7-52) 02/11/25 11:25 Alkaline Phosphatase 83 U/L (34-104) 02/11/25 11:25 Troponin I High Sens 26.6 pg/ml (0-20) H 02/11/25 13:13 Total Protein 8.1 gm/dl (6.0-8.3) 02/11/25 11:25 Albumin 4.1 gm/dl (3.4-5.0) 02/11/25 11:25 Globulin 4.0 gm/dl (2.5-4.0) 02/11/25 11:25 Albumin/Globulin Ratio 1.0 (0.9-2) 02/11/25 11:25 Lipase 49 U/L (11-82) 02/11/25 11:25 Urine Color Yellow 02/11/25 18:51 Urine Appearance Clear (Clear) 02/11/25 18:51 Urine pH 5.0 (4.5-7.5) 02/11/25 18:51 Ur Specific [place] 1.008 (1.000-1.030) 02/11/25 18:51 Urine Protein Trace (Negative) H 02/11/25 18:51 Urine Glucose (UA) 1+ (Negative) H 02/11/25 18:51 Urine Ketones Negative (Negative) 02/11/25 18:51 Urine Blood Negative (Negative) 02/11/25 18:51 Urine Nitrite Negative (Negative) 02/11/25 18:51 Urine Bilirubin Negative (Negative) 02/11/25 18:51 Urine Urobilinogen Negative (Negative) 02/11/25 18:51 Ur Leukocyte Esterase Negative (Negative) 02/11/25 18:51 Urine WBC (Auto) 0-5 /hpf (0-5) 02/11/25 18:51 Urine RBC (Auto) 0-2 /hpf (0-2) 02/11/25 18:51 U Hyaline Cast (Auto) 0-2 /lpf (0-2) 02/11/25 18:51 U Epithel Cells (Auto) 0-2 /hpf (0-2) 02/11/25 18:51 Urine Bacteria (Auto) None Seen (None Seen) 02/11/25 18:51 Stl C. cayetanensis PCR Not Detected (NotDetected) 02/11/25 14:10 Stool Rotavirus A PCR Not Detected (NotDetected) 02/11/25 14:10 Stl Adenov F 40/41 PCR Not Detected (NotDetected) 02/11/25 14:10 Stool Astrovirus (PCR) Not Detected (NotDetected) 02/11/25 14:10 Stool Campylobacter PCR Not Detected (NotDetected) 02/11/25 14:10 Stl C. diff Tox B Gene Negative Cdiff Gene (Neg) 02/11/25 14:10 Stool Cryptosporidium PCR Not Detected (NotDetected) 02/11/25 14:10 Stl E.coli Shiga Tox PCR Not Detected (NotDetected) 02/11/25 14:10 Stl Enterotoxigenic E PCR Not Detected (NotDetected) 02/11/25 14:10 Stool EPEC (PCR) Not Detected (NotDetected) 02/11/25 14:10 Stool EAEC (PCR) Not Detected (NotDetected) 02/11/25 14:10 Stl E. histolytica PCR Not Detected (NotDetected) 02/11/25 14:10 Stool Giardia Lamblia PCR Not Detected (NotDetected) 02/11/25 14:10 Stool Salmonella PCR Not Detected (NotDetected) 02/11/25 14:10 Stool Sapovirus (PCR) Not Detected (NotDetected) 02/11/25 14:10 Stl P. shigelloides PCR Not Detected (NotDetected) 02/11/25 14:10 Stl Shigella/EIEC PCR Not Detected (NotDetected) 02/11/25 14:10 St Y.enterocolitica PCR Not Detected (NotDetected) 02/11/25 14:10 Stool Vibrio (PCR) Not Detected (NotDetected) 02/11/25 14:10 Stl Vibrio cholerae PCR Not Detected (NotDetected) 02/11/25 14:10 Stl Norovirus GI/GII PCR Not Detected (NotDetected) 02/11/25 14:10 Impressions Abdomen/Pelvis CT 02/11/25 12:18 Clinical History: Diarrhea. Acute renal injury Technique: Axial computed tomography images were obtained of the abdomen and pelvis without intravenous contrast. Findings: The liver is overall of normal size, attenuation, and contour with no sign of cirrhosis or significant fatty infiltration. No definite liver mass lesion is seen on this noncontrast study. There are numerous small gallstones. There is no definite sign of acute cholecystitis. No bile duct dilatation is noted. The spleen is of normal size. No focal splenic lesion is evident. The pancreas appears normal with no sign of acute or chronic pancreatitis and no mass lesion noted. The pancreatic duct is of normal caliber. The adrenal glands appear unremarkable. No renal or proximal ureteral calculi are seen. There is no hydronephrosis or perinephric stranding. No definite renal mass lesion is identified. The aorta is of normal caliber. No abdominal adenopathy is seen. There is a small umbilical hernia containing only fat The stomach appears normal. There is no sign of small bowel obstruction. The colon appears unremarkable. The appendix appears normal also. No free intraperitoneal fluid or air is identified. No distal ureteral or bladder calculi are seen. The bladder is decompressed. The iliac arteries are of normal caliber. There is a stent in the left common iliac and external iliac veins. No pelvic adenopathy is noted. The prostate is mildly enlarged measuring 4.2 cm. There are left larger than right inguinal hernias containing only fat The lungs bases appear clear. There is mild dilatation of the visualized esophagus No fracture is identified. No focal osseous lesion is seen Impression: 1. Cholelithiasis without evidence of acute cholecystitis 2. Mild esophageal dilatation, which could be due to dysmotility or reflux 3. Mildly enlarged prostate 4. Inguinal hernias containing only fat ACT 112: Positive. There are findings on this exam that require communication between the performing entity and the patient following Patient Test Result Information Act ([place] ACT 112) guidelines. Electronically signed by José Sheikh 02-11-2025 12:56 PM Ordered Studies 02/11/25 12:18 CT abd pelvis wo con Stat Hospital Course (1) Diarrhea: Plan Patient coming in with multiple diarrheal episodes since last 4 days LEPIDOPTERIST, no nausea or vomiting, reports losing about 10 pounds in the last 4 days. Patient started taking Imodium about 2 days ago LEPIDOPTERIST with improvement in the frequency of the diarrhea. Patient denies abdominal pain. Diarrhea Likely viral gastroenteritis Hypokalemia likely due to GI losses --CT ABD: Cholelithiasis without evidence of acute cholecystitis. Mild esophageal dilatation, which could be due to dysmotility or reflux. Mildly enlarged prostate. Inguinal hernias containing only fat --Stool PCR/ C.diff: Negative Leukocytosis resolved Received IV fluids Continue cholestyramine, Imodium as needed Recommended to get colonoscopy as outpatient Diarrhea resolved Decrease cholestyramine as able Plan to discharge home today Hypokalemia Likely due to GI losses as above Monitor and replete electrolytes as needed Check magnesium levels DAVID on CKD stage IV: Baseline Cr around 2.2-2.5 Cr 4.0 >3.5>3.0>2.5 Held home diuretics Discontinue IV fluids Bladder scan as needed to monitor for any retention Renal function back to baseline Mild chronic troponin elevation In setting of renal failure Denies any chest pain, dizziness Acute on chronic thrombocytopenia No acute bleeding issues Monitor platelet count Other chronic medical conditions: Cardiomyopathy: Continue with home cardiac medications as able. Resume home diuretics as able Hypertension: Resume home antihypertensives as able Hyperlipidemia: Continue atorvastatin T2DM: Sliding scale insulin while in hospital. Monitor blood glucose levels Anemia: continue with supplement. Diabetic neuropathy: Continue gabapentin. DVT Px: Heparin SQ--held due to thrombocytopenia SCDs for now Code Status Full code Disposition Home Total Time Total Time Spent Total Time Spent (In Minutes): 44 minutes Discharge Plan Discharge Items Patient Disposition: Home - Self-Care Reason For Visit: DIARRHEA Discharge Diagnosis: Diarrhea Acute kidney injury on stage IV CKD Hypokalemia Acute on chronic thrombocytopenia Activity: Per Instructions section Exercise/Sports: Wait until after follow-up appointment Non-emergency contact: Primary Care Provider and Flooring Salesperson Call non-emergency contact if: you have any medication questions, your symptoms worsen, your pain is concerning for you and you have a fever Follow-up/Referrals: Anand Llamas [Physician Missile And Missile Checkout Technician] - (Date & Time 03/22/2025 9:30 AM Provider: Anand Llamas PA-C Cardiology, [facility] ) Gaby Islas MD [Primary Care Provider] - (Date & Time 02/23/2025 5:00 PM Provider: Gaby Islas MD General Internal Medicine [facility] ) Diet: Carb Consistent or DM2 Addtl Attending Provider Instructions: Follow-up with your primary care physician on 02/23/2025 5:00 PM Follow-up with your employee wellness/fitness coordinator Anand Llamas as scheduled Follow-up with your choke setter for for possible colonoscopy as outpatient as advised --Get blood work(basic metabolic panel and CBC) in 1 week to monitor your renal function, electrolytes and platelet count. Follow-up with your primary care physician with results for further instructions. --Hold taking Lasix for 2 more days and can resume the medication if no recurrence of diarrhea after 2 days. Seek immediate medical attention if your symptoms reoccur or worsen Please review medication list provided on discharge for any medication changes as instructed. Please call if you have any questions or problems. You can reach a [facility] hospitalist on duty at [facility] 24 hours a day by calling [phone] Pending Studies at Discharge: No Stand-Alone Forms: My [facility], Smoking Cessation Medications and DC Order Prescriptions: New loperamide 2 mg Capsule 2 mg PO Q6H PRN (Reason: loose stool) Qty: 15 0RF potassium chloride 10 mEq Tablet Extended Release 10 meq PO BID Qty: 6 0RF Prevalite 4 gram Powder In Packet 4 g PO DAILY Qty: 3 0RF Continued Trulicity 3 mg/0.5 mL pen injector 3 mg subcut Q7D Qty: 6 3RF Patient Comments: mondays Rx Instructions: Thursday amitriptyline 10 mg tablet 10 mg PO DAILY Qty: 30 2RF empagliflozin 25 mg tablet 25 mg PO QAM Qty: 30 3RF cholecalciferol (vitamin D3) 25 mcg (1,000 unit) capsule 25 mcg PO HS cyanocobalamin (vitamin B-12) 500 mcg tablet 500 mcg PO QAM hydralazine 50 mg tablet 50 mg PO BID amlodipine 2.5 mg tablet 2.5 mg PO QAM allopurinol 100 mg tablet 100 mg PO QAM metoprolol succinate 50 mg tablet extended release 24 hr 50 mg PO BID gabapentin 300 mg capsule 300 - 600 mg PO UD Rx Instructions: 1 capsule in the am and 3 capsules in the pm atorvastatin 40 mg tablet 40 mg PO HS Novolin N FlexPen 100 unit/mL (3 mL) insulin pen 0 - 150 unit subcut DIRECTED Rx Instructions: 150 units subcutaneously inject 20 Units SQ daily with breakfast and 20 Units daily before dinner. Can increase by 1 U if more than 150 for 3 days.; TDD 150 units. garlic 100 mg Tablet 100 mg PO DAILY isosorbide mononitrate 30 mg tablet extended release 24 hr 30 mg PO QAM calcium carbonate [Calcium 600] 600 mg calcium (1,500 mg) Tablet 600 mg PO DAILY ferrous sulfate [iron] 325 mg (65 mg iron) Tablet 325 mg PO DAILY insulin lispro [Humalog KwikPen Insulin] 100 unit/mL insulin pen 26 - 30 unit subcut BID Rx Instructions: 26 units in the morning and 30 units at bedtime Held furosemide 80 mg tablet 80 mg PO BID Hold Instructions: Resume on 02/17/25. Discharge Orders: Discharge Order (Routine); Ordered 02/14/25 Ordered By: Deuce Mai/Other Patient Handouts: Managing Type 2 Diabetes Admission Data Admit Date/Time: 02/11/25 13:12 Attending Provider: Deuce Rucker Admit Provider: Jessica Mcnair Primary Care Provider: Gaby Islas Other Providers: Jessica Mcnair
== END 2025-02-14 14:24 | disposition home or self-care (01) | DRG 392 ==
LOC: ED 11:05 → SUATTDRO 13:12 → 2W 13:12